=== PATIENT | female | born 1960 | race Hispanic/Latino ===

== ENCOUNTER 2017-05-16 00:45 | Emergency (ER) | payer BC ==
[~2017-05-16] VITALS: Ht 144.8 cm; Wt 67.6 kg
--- NOTE | 2017-05-16 03:10 | Diagnostic Imaging Report ---
EXAM: LUMBAR SPINE, AP, lateral, bilateral oblique and coned lateral view DATE: 05/16/2017 2:17 AM Time stamp on exam: [id number] hours INDICATION: Pain in lower back after lifting heavy item COMPARISON: None FINDINGS: BONES: Five lumbar-type vertebral bodies. Grade 1 anterolisthesis of L5 with respect to S1. No acute displaced fractures. No lytic or blastic lesions. DISCS: The disc-spaces are well-maintained. JOINTS: Facet arthropathy bilaterally at L5/S1. Suspected bilateral pars defects. SOFT TISSUES: Unremarkable IMPRESSION: Grade 1 anterolisthesis of L5 with respect to S1 secondary to facet arthropathy and suspected bilateral pars defects. Signed by: Dr. Marcia Candelaria M.D. on 05/16/2017 3:07 AM
[2017-05-16 04:10] VITALS: BP 146/63
== END 2017-05-16 04:15 | disposition home or self-care (01) ==
LOC: ER 00:45
DX: M54.5 Low back pain (principal); S39.012A Strain of muscle, fascia and tendon of lower back, initial encounter; Y93.89 Activity, other specified; Y92.008 Other place in unspecified non-institutional (private) residence as the place of occurrence of the external cause; I10 Essential (primary) hypertension
CPT/HCPCS: 72110; 99283

== ENCOUNTER 2018-01-21 14:50 | Emergency (ER) | payer BC ==
[~2018-01-21] VITALS: Ht 144.8 cm; Wt 67.6 kg
[2018-01-21] MEDS ORDERED: SODIUM CHLORIDE 0.9% 1000ML 1,000 ML IV STA (15:24)
[2018-01-21] MEDS ORDERED: MECLIZINE HCL 12.5 MG TAB PO ONE (15:30)
[2018-01-21 16:06] LABS: BASOPHILS % 0.3 % (0.0-1.0); EOSINOPHILS # (AUTO) 0.1 (0.0-0.4); EOSINOPHILS % 0.7 % (0.0-6.0); HEMATOCRIT 41.7 % (34.2-44.1); HEMOGLOBIN 13.8 g/dL (12.0-16.0); LYMPHOCYTES % 18.7 % (18.0-39.1); MEAN CORPUSCULAR HEMOGLOBIN 28.8 pg (28-32); MEAN CORPUSCULAR HGB CONC 33.1 g/dL (31-35); MEAN CORPUSCULAR VOLUME 87.1 fL (81-99); MONOCYTES # (AUTO) 0.6 (0.2-0.8); MONOCYTES % 5.6 % (4.4-11.3); NEUTROPHILS # (AUTO) 7.8 (2.1-6.9); NEUTROPHILS % 74.3 % (38.7-80.0); PLATELET COUNT 284 x10e3/uL (140-360); RED BLOOD COUNT 4.79 x10e6/uL (3.6-5.1); RED CELL DISTRIBUTION WIDTH 13.2 % (11.7-14.4)
[2018-01-21 16:27] LABS: ALANINE AMINOTRANSFERASE 14 IU/L (0-55); ALBUMIN 4.1 g/dL (3.5-5.0); ALBUMIN/GLOBULIN RATIO 1.1 (0.8-2.0); ALKALINE PHOSPHATASE 110 IU/L (40-150); ANION GAP 16.5 mmol/L (8-16); BILIRUBIN,URINE NEGATIVE (NEGATIVE); BLOOD UREA NITROGEN 15 mg/dL (7-26); BUN/CREATININE RATIO 23 (6-25); CALCIUM 10.3 mg/dL (8.4-10.2); CARBON DIOXIDE 25 mmol/L (22-29); CHLORIDE 102 mmol/L (98-107); CLARITY,URINE SL CLOUDY (CLEAR); COLOR,URINE YELLOW (YELLOW); CREATINE KINASE 46 IU/L (29-168); CREATININE, SERUM 0.66 mg/dL (0.57-1.11); EST GLOMERULAR FILTRATION RATE > 60 ML/MIN (60-); GLUCOSE 101 mg/dL (74-118); KETONES,URINE NEGATIVE (NEGATIVE); LEUKOCYTE ESTERASE ,URINE NEGATIVE (NEGATIVE); LIPASE 17 U/L (8-78); NITRITE,URINE NEGATIVE (NEGATIVE); POTASSIUM 3.5 mmol/L (3.5-5.1); PROTEIN,URINE DIPSTICK 1+ (NEGATIVE); SODIUM 140 mmol/L (136-145); URINE UROBILINOGEN 0.2 mg/dL (0.2 - 1)
[2018-01-21 16:45] LABS: BACTERIA,URINE MODERATE /HPF; EPITHELIAL CELLS,URINE FEW /LPF; WBC,URINE (MAN) 0-5 /HPF (0-5)
--- NOTE | 2018-01-21 17:08 | Diagnostic Imaging Report ---
Examination: Single AP view of the chest. COMPARISON: None. INDICATION: Shortness of breath DISCUSSION: Lines/tubes: None. Lungs: The lungs are well inflated and clear. No pneumonia or pulmonary edema. Pleura: No pleural effusion or pneumothorax. Heart and mediastinum: The heart and the mediastinum are unremarkable. Bones and soft tissues: No acute bony abnormalities. IMPRESSION: 1. No acute cardiopulmonary abnormalities. Signed by: Dr. Jeramie García M.D. on 01/21/2018 5:05 PM
[2018-01-21] MEDS ORDERED: SODIUM CHLORIDE 0.9% 50ML 50 ML ONE (18:32)
[2018-01-21] MEDS ORDERED: IOPAMIDOL 370 MG/ML 200 ML INFUS..BTL INJ ONE (18:32)
--- NOTE | 2018-01-21 18:34 | Diagnostic Imaging Report ---
History: Low back pain Comparison studies: None Technique: Axial images were obtained from T11 through the sacrum. Coronal and sagittal images reconstructed from the axial data. Intravenous contrast: None Dose modulation, iterative reconstruction, and/or weight based adjustment of the mA/kV was utilized to reduce the radiation dose to as low as reasonably achievable. Findings: Number of non-rib bearing vertebral bodies: 5 Alignment: Grade 1 anterolisthesis of L5 over S1 with bilateral spondylolysis. No scoliosis. Soft tissues: No paraspinal abnormalities. Atherosclerotic calcifications of the abdominal aorta Paraspinal muscles: Unremarkable. Vertebrae: No acute fractures, infection or neoplasm. Central L4 vertebral body loss of height with superior endplate Schmorl mild Degenerative changes: L1-L2: No abnormalities. L2-L3: No abnormalities. L3-L4: Mild disc degeneration with decreased intervertebral space and L4 superior endplate Schmorl node. Diffuse bulge and mild facet hypertrophy results in mild canal stenosis and mild bilateral foraminal narrowing L4-L5: Mild disc degeneration through 2 space. His simple and mild facet hypertrophy results in mild canal L5-S1: Is degeneration with decreased intervertebral space. Adenopathy. The result in canal stenosis and severe bilateral foraminal narrowing Sacroiliac joints: Mild degenerative changes with sclerotic changes. Contrast is seen in the collecting systems. IMPRESSION: 1. No acute abnormality. 2. Severe bilateral foraminal narrowing at L5-S1 secondary to grade 1 retrolistheses. Bilateral L5 pars interarticulares defect. 3. Other mild changes as described above Signed by: DR Brett Rahman M.D. on 01/21/2018 6:30 PM
--- NOTE | 2018-01-21 18:39 | Diagnostic Imaging Report ---
History:Dizziness, lower back pain, Comparison studies:None Technique: Axial images were obtained from the skull base to the vertex. Coronal and sagittal images reconstructed from the axial data. Intravenous contrast: 100 cc of Omnipaque 300. Dose modulation, iterative reconstruction, and/or weight based adjustment of the mA/kV was utilized to reduce the radiation dose to as low as reasonably achievable. Findings: Right internal carotid artery: Patent. No abnormalities. Left internal carotid artery: Patent. No abnormalities. Right vertebral artery: Patent. No abnormalities. Left vertebral artery: Patent. No abnormalities. Basilar artery: Patent. No abnormalities. Posterior cerebral arteries: Patent. No abnormalities. Anatomical variants: Acom: Patent . Pcoms: Not well visualized. Vertebral arteries: Codominant . IMPRESSION: 1. No intracranial vascular abnormality. 2. No intracranial abnormality Signed by: DR Brett Rahman M.D. on 01/21/2018 6:36 PM
[2018-01-21] MEDS ORDERED: MECLIZINE HCL25 M1 PO (19:54)
[2018-01-21 19:55] VITALS: BP 133/82
== END 2018-01-21 20:07 | disposition home or self-care (01) ==
LOC: ER 14:50
DX: R42 Dizziness and giddiness (principal)
CPT/HCPCS: 36415; 70496; 71045; 72131; 80053; 81001; 82550; 82553; 83605; 83690; 84484; 85025; 93005; 99284; J7030; Q9967

== ENCOUNTER → 2019-05-30 | Day surgery (SDC) | payer OTHER ==
[2019-05-24 11:59] LABS: BASOPHILS % 0.3 % (0.0-1.0); EOSINOPHILS # (AUTO) 0.2 (0.0-0.4); EOSINOPHILS % 2.3 % (0.0-6.0); HEMATOCRIT 38.6 % (34.2-44.1); HEMOGLOBIN 12.7 g/dL (12.0-16.0); LYMPHOCYTES # (AUTO) 1.6 (1.0-3.2); LYMPHOCYTES % 23.9 % (18.0-39.1); MEAN CORPUSCULAR HEMOGLOBIN 28.3 pg (28-32); MEAN CORPUSCULAR HGB CONC 32.9 g/dL (31-35); MONOCYTES # (AUTO) 0.5 (0.2-0.8); MONOCYTES % 7.4 % (4.4-11.3); NEUTROPHILS # (AUTO) 4.3 (2.1-6.9); NEUTROPHILS % 65.9 % (38.7-80.0); PLATELET COUNT 219 x10e3/uL (140-360); RED BLOOD COUNT 4.49 x10e6/uL (3.6-5.1); RED CELL DISTRIBUTION WIDTH 13.6 % (11.7-14.4)
--- NOTE | 2019-05-24 12:15 | Diagnostic Imaging Report ---
EXAMINATION: CHEST 2 VIEWS INDICATION: Pre-admit. COMPARISON: Chest radiograph 01/21/2018. FINDINGS: TUBES and LINES: None. LUNGS: Lungs are moderately inflated. Minimal patchy left basilar opacity, likely atelectasis. There is no evidence of lobar pneumonia or pulmonary edema. PLEURA: No pleural effusion or pneumothorax. HEART AND MEDIASTINUM: The cardiomediastinal silhouette is unremarkable. BONES AND SOFT TISSUES: No acute osseous lesion. Soft tissues are unremarkable. UPPER ABDOMEN: No free air under the diaphragm. IMPRESSION: No acute thoracic abnormality. Signed by: Dr. Peter Jose MD on 05/24/2019 12:13 PM
[~2019-05-30] MED LIST: ALPRAZOLAM1 MG PO; ATORVASTATIN CA20 MG PO; BUPIVACAINE 0.25% 30ML SDV INJ ONE; BUPIVACAINE HCL 0.5% INJ 30 ML VIAL INJ ONE; BUPROPION XL150 MG PO; CEFAZOLIN SOD 1 GM/NS 50ML 100 ML IV ONE; EPHEDRINE SULFATE INJ 50 MG/ML VIAL ONE; FENTANYL CITRATE/PF 100MCG/2 ML INJ ONE; GLYCOPYRROLATE INJ 0.2 MG/ML VIAL ONE; LABETALOL HCL 0 ML ONE; LIDOCAINE 1% W/EPINEPHRINE 20 ML VIAL ONE; LIDOCAINE 2%/ EPINEPHRINE 20ML MDV ONE; LIDOCAINE HCL 2% LOCAL INJ 5 ML SDV VIAL INJ ONE; LISINOPRIL10 MG PO; MECLIZINE HCL25 M1 PO; MEPERIDINE HCL INJ 25 MG/ML VIAL ONE; METOCLOPRAMIDE HCL 10 MG/2ML VIAL ONE; MIDAZOLAM HCL 2 MG/2 ML VIAL ONE; ONDANSETRON HCL INJ 2MG/ML 2ML 2 MG/ML VIAL ONE; PLAVIX75 MG PO; PROPOFOL IV EMULSION 10 MG/ML 20 ML VIAL ONE; SEVOFLURANE INHAL SOLN 250 ML PEN BTL ONE
--- OUTSIDE RECORDS SUMMARY | 2019-05-30 08:27 | XMS REPORT ---
Author Author [facility] Address Unknown Phone Unavailable Care Team Providers Care Half Backer Name Role Phone Omer MARINO Unavailable Unavailable GREGORIO THAPA Unavailable Unavailable Ciarra COLORADO LAIBRYANT Unavailable Unavailable Payers Payer Name Policy Type Policy Number Effective Date Expiration Date Problems This patient has no known problems. Allergies, Adverse Reactions, Alerts Allergy Name Allergy Type Status Severity Reaction(s) Onset Date Inactive Date Treating Clinician Comments ibuprofen DA Active U 2019-04-03 00:00:00 naproxen DA Active U 2019-04-03 00:00:00 tramadol DA Active U 2019-04-03 00:00:00 STEROIDS DA Active AK 2019-04-03 00:00:00 ibuprofen DA Active AK 2018-09-24 00:00:00 methylprednisolone DA Active SV 2018-09-24 00:00:00 naproxen DA Active SV 2018-09-24 00:00:00 ibuprofen DA Active U 2018-04-04 00:00:00 naproxen DA Active U 2018-04-04 00:00:00 No Known Allergies DA Active U 2016-08-12 00:00:00 Medications This patient has no known medications. Results Test Description Test Time Test Comments Text Results Atomic Results Result Comments CHEST 2 VIEWS 2019-05-24 12:11:00 [place] [id number] Patient Name: ELDA PARKS MR #: [id number] : 1960 Age/Sex: 58/F Req #: [id number] Adm Physician: Ordered by: MESSI MARINO DO Report #: [id number] Location: OR Room/Bed: Procedure: [id number] DX/CHEST 2 VIEWS Exam Date: Exam Time: REPORT STATUS: Signed EXAMINATION: CHEST 2 VIEWS INDICATION: Pre-admit. COMPARISON: Chest radiograph 01/21/2018. FINDINGS: TUBES and LINES: None. LUNGS: Lungs are moderately inflated. Minimal patchy left basilar opacity, likely atelectasis. There is no evidence of lobar pneumonia or pulmonary edema. PLEURA: No pleural effusion or pneumothorax. HEART AND MEDIASTINUM: The cardiomediastinal silhouette is unremarkable. BONES AND SOFT TI SSUES: No acute osseous lesion. Soft tissues are unremarkable. UPPER ABDOMEN: No free air under the diaphragm. IMPRESSION: No acute thoracic abnormality. Signed by: Dr. Janet Cruz MD on 05/24/2019 12:13 PM Dictated By: JANET CRUZ MD 1213 Transcribed By: CAMACHO on 05/24/19 1213 COPY TO: MESSI MARINO DO KNEE LEFT THREE VIEWS 2019-04-18 17:28:00 [place] [address] Patient Name: ELDA PARKS MR #: [id number] : 1960 Age/Sex: 58/F Req #: [id number] Adm Physician: Ordered by: GREGORIO THAPA DO Report #: [id number] Location: ER Room/Bed: Procedure: [id number] DX/KNEE LEFT THREE VIEWS Exam Date: 04/18/19 Exam Time: 1603 REPORT STATUS: Signed EXAMINATION: KNEE LEFT THREE VIEWS JUAN CATION: Knee pain COMPARISON: None FINDINGS: No acute fracture or dislocation. Alignment is anatomic. No substantial joint effusion. Minimal degenerative changes. IMPRESSION: No acute osseous injury. Signed by: Mary Belle MD on 04/18/2019 5:28 PM Dictated By: MARY BELLE MD 27 Transcribed By: CAMACHO on 04/18/191727 COPY TO: GREGORIO THAPA DO - CT L-SPINE W/O CONTRAST 2019-04-03 17:13:00 Name: ELDA BURGOS [facility] : 1960 Age/S: 58 / F [address] [facility] Unit #: [id number] Loc: [place] [address] Phys: Maggi Cruz MD Acct: [id number] Dis Date: Status: REG ER PHONE #: [phone] Exam Date: 04/03/2019 1702 FAX #: [phone] Reason: left hip pain and back pain EXAMS: CPT CODE: [id number] CT L-SPINE W/O CONTRAST [id number] REASON FOR EXAM: left hip pain and back pain EXAM ORDER DATE: 04/03/2019 4:13 PM Ordering: Maggi Cruz MD Attending:Maggi Cruz MD Location: PROCEDURE: - CT L-SPINE W/O CONTRAST FINDINGS: CT images of the were obtained without IV contrast at 2.5mm. Reconstructed coronal and sagittal images were also provided. Dose modulation, iterative reconstruction, and/or weight based adjustment of the MA/KV was utilized to reduce the radiation dose to as low as reasonably achievable. The osseous structures are intact. Minimal depression of the superior endplate of L4. The central canal is patent. Minimal anterior translation of L5-S1. Bilateral pars interarticularis defect noted at L5-S1. IMPRESSION: Degenerative changes and disc disease at L3-4. Grade 1 spondylolisthesis of L5-S1. No acute findings at 1713 Reported and signed by: Wolf Jordan M.D. CC: Cullen Duffy; Maggi Cruz MD Technologist:Maria Elena Garcia RT(R)(CT) CTDI: DLP: Trnscb Date/Time: 04/03/2019 (171) [email or web address] Orig Print D/T: S: 04/03/2019 (6246) PAGE 1 Signed Report BASIC METABOLIC PANEL 2019-04-03 17:12:00 SODIUM (test code=NA) 144 mmol/L 136-145 POTASSIUM (test code=K) 4.0 mmol/L 3.5-5.1 CHLORIDE (test code=CL) 110.0 mmol/L 98-107 CARBON DIOXIDE (test code=CO2) 28.0 mmol/L 21-32 ANION GAP (test code=GAP) 10.0 10-20 GLUCOSE (test code=GLU) 90 mg/dL 74-106 BLOOD UREA NITROGEN (test code=BUN) 17 mg/dL 7-18 GLOMERULAR FILTRATION RATE (test code=GFR) > 60 mL/min >=60 Estimated GFR by using Modified MDRD formula.Chronic kidney disease is defined as either kidney damageor GFR <60 mL/min/1.73 m2 for >3 months. CREATININE (test code=CREAT) 0.60 mg/dL 0.55-1.02 Note change in reference range due to change in reagent. BUN/CREATININE RATIO (test code=BUN/CREA) 28.3 10-20 CALCIUM (test code=CA) 9.9 mg/dL 8.5-10.1 [id number] 17:12:00* Test Item Value Reference Range Comments TROPONIN-I (test code=TROPI) <0.015 ng/mL 0-0.045 TROPONIN I [id number] 17:05:00* Test Item Value Reference Range Comments TROPONIN I RAPID (test code=TROPIRAP) 0.00 ng/mL <0.08 Please Note New Reference Range 0.00-0.079 ng/mL - Negative>or=0.08 ng/mL - Positive The use of serial sampling and testing protocol is arecommended practice.An elevated troponin level alone is often not sufficient fordiagnosis of myocardial infarction. Troponin results obtained by different assays may vary.Evaluation of the extent of myocardial damage based onincrease of troponin would be valid only if similarmethodology is used. BASIC METABOLIC [id number] 17:04:00* Test Item Value Reference Range Comments SODIUM (test code=NA) 144 mmol/L 136-145 POTASSIUM (test code=K) 4.0 mmol/L 3.5-5.1 CHLORIDE (test code=CL) 110.0 mmol/L 98-107 CARBON DIOXIDE (test code=CO2) mmol/L 21-32 ANION GAP (test code=GAP) 10-20 GLUCOSE (test code=GLU) mg/dL 74-106 BLOOD UREA NITROGEN (test code=BUN) mg/dL 7-18 GLOMERULAR FILTRATION RATE (test code=GFR) mL/min >=60 CREATININE (test code=CREAT) mg/dL 0.55-1.02 BUN/CREATININE RATIO (test code=BUN/CREA) 10-20 CALCIUM (test code=CA) mg/dL 8.5-10.1 [id number] 17:04:00* Test Item Value Reference Range Comments TROPONIN-I (test code=TROPI) ng/mL 0-0.045 - XR HIP W/PEL UNI 2+V [id number] 16:54:00 FAX: Cullen Carmona DO [phone] [place]: [address]: [facility] FAX: Maggi Cruz MD Name: ELDA BURGOS [facility] : 1960 Age/S: 58/F [address] Unit #: [id number] Loc: [place] [address] Phys: Maggi Cruz MD Acct: [id number] Dis Date: Status: REG ER PHONE #: [phone] Exam Date: 04/03/2019 1632 FAX #: [phone] Reason: left hip pain and back pain EXAMS: CPT CODE: [id number] XR HIP W/PEL UNI 2+[place] [id number] REASON FOR EXAM: left hip pain and back pain EXAM ORDER DATE: 04/03/2019 4:13 PM Ordering: Maggi Cruz MD Attending:Maggi Cruz MD Location: PROCEDURE: - XR HIP W/PEL UNI 2+V LT FINDINGS: 3 views of the left hip with frontal view of the pelvis were obtained. The osseous s tructures are unremarkable in size and shape. The joint spaces are mainta ined. No evidence of fracture. There is normal alignment of the left hi p joint IMPRESSION: Unremarkable left hip Thomas ayala Signed by Issa Jordan on 04/03/2019 at 1654 Isabelle maurizio and signed by: Wolf Jordan M.D. CC: Cullen Duffy; Maggi Ingram MD Technologist: Jez Rodriguez RT(R) Trnscrd Date/Time/By: 04/03/2019 (6482) : By: NeymarVTL Orig Print D/T: S: 04/03/2019 (6486) PAGE 1 Signed Report CBC W/O [id number] 16:53:00* Test Item Value Reference Range Comments WHITE BLOOD CELL (test code=WBC) 9.0 K/mm3 4.5-12.5 RED BLOOD CELL (test code=RBC) 4.74 mill/mm3 3.7-5.2 HEMOGLOBIN (test code=HGB) 13.5 gram/dL 11.5-15.5 HEMATOCRIT (test code=HCT) 41.5 % 36.0-46.0 MEAN CELL VOLUME (test code=MCV) 87.6 fL 80-98 MEAN CELL HGB (test code=MCH) 28.5 picogram 27.0-33.0 MEAN CELL HGB CONCETRATION (test code=MCHC) 32.5 gram/dL 33.0-36.0 RED CELL DISTRIBUTION WIDTH (test code=RDW) 13.7 % 11.6-16.2 PLATELET COUNT (test code=PLT) 252 K/mm3 150-450 MEAN PLATELET VOLUME (test code=MPV) 12.0 fL 6.7-11.0 CBC W/O [id number] 16:42:00* Test Item Value Reference Range Comments WHITE BLOOD CELL (test code=WBC) K/mm3 4.5-12.5 RED BLOOD CELL (test code=RBC) mill/mm3 3.7-5.2 HEMOGLOBIN (test code=HGB) 13.5 gram/dL 11.5-15.5 HEMATOCRIT (test code=HCT) 41.5 % 36.0-46.0 MEAN CELL VOLUME (test code=MCV) fL 80-98 MEAN CELL HGB (test code=MCH) picogram 27.0-33.0 MEAN CELL HGB CONCETRATION (test code=MCHC) gram/dL 33.0-36.0 RED CELL DISTRIBUTION WIDTH (test code=RDW) % 11.6-16.2 PLATELET COUNT (test code=PLT) K/mm3 150-450 MEAN PLATELET VOLUME (test code=MPV) fL 6.7-11.0 - XR CHEST 1 [id number] 16:08:00 FAX: Cullen Carmona [phone] [place]: [facility]: [facility] FAX: Piero Marshall NP [phone] Name: ELDA BURGOS [facility] : 1960 Age/S: 58/F [address] [facility] Unit #: [id number] Loc: [place] [address] Phys: Piero Marshall NP Acct: [id number] Dis Date: Status: REG ER PHONE #: [phone] Exam Date: 04/03/2019 1559 FAX #: [phone] Reason: CHEST PAIN EXAMS: CPT CODE: [id number] XR CHEST 1 V [id number] REASON FOR EXAM: CHEST PAIN EXAM ORDER DATE: 04/03/2019 3:44 PM Ordering: Piero Marshall NP Attending:Maggi Cruz MD Location: PROCEDURE: - XR CHEST 1 V COMPARISON: 12/07/2018 FINDINGS: Portable AP frontal view of the chest obtained at 3:59 PM shows clear lungs without evidence of consolidation. There is no evidence of effusion. The heart size is within normal limits. Pulmonary vasculatures are unremarkable. IMPRESSION: No active disease. at 1601 Reported and signed by: Wolf Jordan M.D. CC: Cullen Duffy; Piero Marshall NP Technologist: Mirna Sierra RT(R) Trnscrd Date/Time/By: 04/03/2019 (8361) : By: Deandra.VTL Orig Print D/T: S: 04/03/2019 (2266) PAGE 1 Signed Report BASIC METABOLIC [id number] 16:14:00* Test Item Value Reference Range Comments SODIUM (test code=NA) 141 mmol/L 136-145 POTASSIUM (test code=K) 4.0 mmol/L 3.5-5.1 CHLORIDE (test code=CL) 111.0 mmol/L 98-107 CARBON DIOXIDE (test code=CO2) 24.0 mmol/L 21-32 ANION GAP (test code=GAP) 10.0 10-20 GLUCOSE (test code=GLU) 111 mg/dL 74-106 BLOOD UREA NITROGEN (test code=BUN) 11 mg/dL 7-18 GLOMERULAR FILTRATION RATE (test code=GFR) > 60 mL/min >=60 Estimated GFR by using Modified MDRD formula.Chronic kidney disease is defined as either kidney damageor GFR <60 mL/min/1.73 m2 for >3 months. CREATININE (test code=CREAT) 0.60 mg/dL 0.55-1.02 Note change in reference range due to change in reagent. BUN/CREATININE RATIO (test code=BUN/CREA) 19.2 10-20 CALCIUM (test code=CA) 9.8 mg/dL 8.5-10.1 HEPATIC FUNCTION [id number] 16:14:00* Test Item Value Reference Range Comments TOTAL PROTEIN (test code=PROT) 7.6 gram/dL 6.4-8.2 ALBUMIN (test code=ALB) 4.0 g/dL 3.4-5.0 GLOBULIN (test code=GLOB) 3.6 gram/dL 2.7-4.2 ALBUMIN/GLOBULIN RATIO (test code=A/G) 1.1 0.75-1.50 BILIRUBIN TOTAL (test code=BILT) 0.50 mg/dL 0.0-1.0 BILIRUBIN DIRECT (test code=BILD) 0.14 mg/dL 0.0-0.20 SGOT/AST (test code=AST) 11 IUnit/L 15-37 SGPT/ALT (test code=ALT) 27 IUnit/L 12-78 ALKALINE PHOSPHATASE TOTAL (test code=ALKP) 92 IUnit/L 45-117 Note change in reference range due to change in reagent. [id number] 16:14:00* Test Item Value Reference Range Comments LIPASE (test code=LIP) 77 U/L 73.0-393.0 [id number] 16:14:00* Test Item Value Reference Range Comments TROPONIN-I (test code=TROPI) <0.015 ng/mL 0-0.045 TROPONIN I [id number] 16:08:00* Test Item Value Reference Range Comments TROPONIN I RAPID (test code=TROPIRAP) 0.01 ng/mL <0.08 Please Note New Reference Range 0.00-0.079 ng/mL - Negative>or=0.08 ng/mL - Positive The use of serial sampling and testing protocol is arecommended practice.An elevated troponin level alone is often not sufficient fordiagnosis of myocardial infarction. Troponin results obtained by different assays may vary.Evaluation of the extent of myocardial damage based onincrease of troponin would be valid only if similarmethodology is used. BASIC METABOLIC [id number] 16:05:00* Test Item Value Reference Range Comments SODIUM (test code=NA) 141 mmol/L 136-145 POTASSIUM (test code=K) 4.0 mmol/L 3.5-5.1 CHLORIDE (test code=CL) 111.0 mmol/L 98-107 CARBON DIOXIDE (test code=CO2) mmol/L 21-32 ANION GAP (test code=GAP) 10-20 GLUCOSE (test code=GLU) mg/dL 74-106 BLOOD UREA NITROGEN (test code=BUN) mg/dL 7-18 GLOMERULAR FILTRATION RATE (test code=GFR) mL/min >=60 CREATININE (test code=CREAT) mg/dL 0.55-1.02 BUN/CREATININE RATIO (test code=BUN/CREA) 10-20 CALCIUM (test code=CA) mg/dL 8.5-10.1 HEPATIC FUNCTION [id number] 16:05:00* Test Item Value Reference Range Comments TOTAL PROTEIN (test code=PROT) gram/dL 6.4-8.2 ALBUMIN (test code=ALB) g/dL 3.4-5.0 GLOBULIN (test code=GLOB) gram/dL 2.7-4.2 ALBUMIN/GLOBULIN RATIO (test code=A/G) 0.75-1.50 BILIRUBIN TOTAL (test code=BILT) mg/dL 0.0-1.0 BILIRUBIN DIRECT (test code=BILD) mg/dL 0.0-0.20 SGOT/AST (test code=AST) IUnit/L 15-37 SGPT/ALT (test code=ALT) IUnit/L 12-78 ALKALINE PHOSPHATASE TOTAL (test code=ALKP) IUnit/L 45-117 [id number] 16:05:00* Test Item Value Reference Range Comments LIPASE (test code=LIP) U/L 73.0-393.0 [id number] 16:05:00* Test Item Value Reference Range Comments TROPONIN-I (test code=TROPI) ng/mL 0-0.045 CBC W/O [id number] 15:27:00* Test Item Value Reference Range Comments WHITE BLOOD CELL (test code=WBC) 7.8 K/mm3 4.5-12.5 RED BLOOD CELL (test code=RBC) 4.88 mill/mm3 3.7-5.2 HEMOGLOBIN (test code=HGB) 14.1 gram/dL 11.5-15.5 HEMATOCRIT (test code=HCT) 41.8 % 36.0-46.0 MEAN CELL VOLUME (test code=MCV) 85.7 fL 80-98 MEAN CELL HGB (test code=MCH) 28.9 picogram 27.0-33.0 MEAN CELL HGB CONCETRATION (test code=MCHC) 33.7 gram/dL 33.0-36.0 RED CELL DISTRIBUTION WIDTH (test code=RDW) 13.7 % 11.6-16.2 PLATELET COUNT (test code=PLT) 213 K/mm3 150-450 MEAN PLATELET VOLUME (test code=MPV) 12.4 fL 6.7-11.0 CBC W/O [id number] 15:24:00* Test Item Value Reference Range Comments WHITE BLOOD CELL (test code=WBC) K/mm3 4.5-12.5 RED BLOOD CELL (test code=RBC) mill/mm3 3.7-5.2 HEMOGLOBIN (test code=HGB) 14.1 gram/dL 11.5-15.5 HEMATOCRIT (test code=HCT) 41.8 % 36.0-46.0 MEAN CELL VOLUME (test code=MCV) fL 80-98 MEAN CELL HGB (test code=MCH) picogram 27.0-33.0 MEAN CELL HGB CONCETRATION (test code=MCHC) gram/dL 33.0-36.0 RED CELL DISTRIBUTION WIDTH (test code=RDW) % 11.6-16.2 PLATELET COUNT (test code=PLT) K/mm3 150-450 MEAN PLATELET VOLUME (test code=MPV) fL 6.7-11.0 - XR CHEST 1 [id number] 15:01:00 FAX: Alek Chang [phone] [place]: B St: PRE FAX: Cullen Carmona DO [phone] Name: ELDA PARKS [facility] : 1960 Age/S: 58/F [place] Unit #: [id number] Loc: [place] [address] Phys: Alek Logan MD Acct: [id number] Dis Date: Status: PRE ER PHONE #: [phone] Exam Date: 03/19/2019 1455 FAX #: [phone] Reason: CHEST PAIN EXAMS: CPT CODE: [id number] XR CHEST 1 V [id number] REASON FOR EXAM: CHEST PAIN Exam Order Date: 03/19/2019 2:41 PM Ordering M.D.: Alek Logan MD PROCEDURE: - XR CHEST 1 V COMPARISON: CT chest September 24, 2018 FINDINGS: The lungs are clear. There is no pleural effusion or pneumothorax. Pulmonary vascularity is within normal limits. Cardiomediastinal silhouette is normal in size for technique. The mediastinal contours are within normal limits. Musculoskeletal st ructures are within normal limits. The visualized upper abdomen is within normal limits. IMPRESSION: No acute card iopulmonary process. Location: [facility] at 1501 Reported and signed by: Virgil Knight MD CC: Alek Logan MD; Jose L Duffy Technologist: AXEL PHILLIPS Trnscrd Date/Time/By: 03/19/2019 (9368) : By: [email or web address] Orig Print D/T: S: 03/19/2019 (5961) PAGE 1 Signed Report [id number] 15:44:00* Test Item Value Reference Range Comments TROPONIN-I (test code=TROPI) <0.015 ng/mL 0-0.045 COMMENTS TO TREASURY CONSULTANT: COLLECT 3 HOURS AFTER PREVIOUS [id number] 15:41:00* Test Item Value Reference Range Comments TROPONIN-I (test code=TROPI) <0.015 ng/mL 0-0.045 COMMENTS TO TREASURY CONSULTANT: COLLECT 3 HOURS AFTER PREVIOUS SAMPLEBASIC METABOLIC [id number] 05:21:00* Test Item Value Reference Range Comments SODIUM (test code=NA) 142 mmol/L 136-145 POTASSIUM (test code=K) 3.4 mmol/L 3.5-5.1 CHLORIDE (test code=CL) 111.0 mmol/L 98-107 CARBON DIOXIDE (test code=CO2) 26.0 mmol/L 21-32 ANION GAP (test code=GAP) 8.4 10-20 GLUCOSE (test code=GLU) 88 mg/dL 74-106 BLOOD UREA NITROGEN (test code=BUN) 17 mg/dL 7-18 GLOMERULAR FILTRATION RATE (test code=GFR) > 60 mL/min >=60 Estimated GFR by using Modified MDRD formula.Chronic kidney disease is defined as either kidney damageor GFR <60 mL/min/1.73 m2 for >3 months. CREATININE (test code=CREAT) 0.60 mg/dL 0.55-1.02 Note change in reference range due to change in reagent. BUN/CREATININE RATIO (test code=BUN/CREA) 28.3 10-20 CALCIUM (test code=CA) 9.1 mg/dL 8.5-10.1 HCG SERUM [id number] 05:21:00* Test Item Value Reference Range Comments HCG SERUM QUAL (test code=HCGQL) NEGATIVE NEGATIVE This HCGQL test is NOT applicable for MALE patients.Check with nurse about probable order error.If Tumor Marker Test needed, nurse should order test "HCGTU"(Test #550.17015) [id number] 05:21:00* Test Item Value Reference Range Comments TROPONIN-I (test code=TROPI) <0.015 ng/mL 0-0.045 BASIC METABOLIC [id number] 05:20:00* Test Item Value Reference Range Comments SODIUM (test code=NA) mmol/L 136-145 POTASSIUM (test code=K) mmol/L 3.5-5.1 CHLORIDE (test code=CL) mmol/L 98-107 CARBON DIOXIDE (test code=CO2) mmol/L 21-32 ANION GAP (test code=GAP) 10-20 GLUCOSE (test code=GLU) mg/dL 74-106 BLOOD UREA NITROGEN (test code=BUN) mg/dL 7-18 GLOMERULAR FILTRATION RATE (test code=GFR) mL/min >=60 CREATININE (test code=CREAT) mg/dL 0.55-1.02 BUN/CREATININE RATIO (test code=BUN/CREA) 10-20 CALCIUM (test code=CA) mg/dL 8.5-10.1 HCG SERUM [id number] 05:20:00* Test Item Value Reference Range Comments HCG SERUM QUAL (test code=HCGQL) NEGATIVE NEGATIVE This HCGQL test is NOT applicable for MALE patients.Check with nurse about probable order error.If Tumor Marker Test needed, nurse should order test "HCGTU"(Test #550.18879) [id number] 05:20:00* Test Item Value Reference Range Comments TROPONIN-I (test code=TROPI) ng/mL 0-0.045 CBC W/O [id number] 05:01:00* Test Item Value Reference Range Comments WHITE BLOOD CELL (test code=WBC) 6.6 K/mm3 4.5-12.5 RED BLOOD CELL (test code=RBC) 4.34 mill/mm3 3.7-5.2 HEMOGLOBIN (test code=HGB) 12.4 gram/dL 11.5-15.5 HEMATOCRIT (test code=HCT) 38.7 % 36.0-46.0 MEAN CELL VOLUME (test code=MCV) 89.2 fL 80-98 MEAN CELL HGB (test code=MCH) 28.6 picogram 27.0-33.0 MEAN CELL HGB CONCETRATION (test code=MCHC) 32.0 gram/dL 33.0-36.0 RED CELL DISTRIBUTION WIDTH (test code=RDW) 13.9 % 11.6-16.2 PLATELET COUNT (test code=PLT) 206 K/mm3 150-450 MEAN PLATELET VOLUME (test code=MPV) 12.5 fL 6.7-11.0 - US ABDOMEN [id number] 03:55:00 Name: ELDA BURGOS [facility] : 1960 Age/S: 58 / F [place] Unit #: [id number] Loc: [place] [address] Phys: Alek Logan MD Acct: [id number] Dis Date: Status: REG ER PHONE #: [phone] Exam Date: 12/07/2018332 FAX #: [phone] Reason: ruq pain EXAMS: CPT CODE: [id number] US ABDOMEN LTD 18337 Location: T 18 RUQ sonogram, 12/07/18 COMPARISON EXAM: None of the abdomen CLINICAL HISTORY: Right upper quadrant pain in this patient presenting to the emergency room Do not see a definite gallstone. The gallbladder is somewhat contracted. This may be reflective of chronic cholecystitis. Probable small polyp measuring just 3 to 4 mm in size is seen within the gallbladder dependent along the anterior wall without shadowing. No biliary distention is seen. The CBD measures 2 mm. The right kidney is unremarkable. Liver is normal in size and echogenicity without abnormal mass. The retroperitoneal structures are grossly unremarkable. There is presence of a positive Preston's sign as noted sonographically. Consideration of general surgical consultation is therefore advised. The g allbladder wall is mildly prominent although the gallbladder is contracted and therefore this is difficult to assess.. IMPRESSION: Contracted gallbladder without definite galls tones but with positive Preston's sonographic sign and with probable smal l gallbladder polyp. No biliary distention of significance at 0355 Re ported and signed by: Emilee Brink M.D. CC: Alek Logan MD; Cullen Duffy Technologist: YUDITH ALEXIS RDMS Trnazb Date/Time: 12/07/2018 (0355) [email or web address] Orig Print D/T: S: 12/07/2018 (0358) Probe: PAGE 1 Signed Report - XR CHEST 1 [id number] 03:12:00 FAX: Alek Chang [phone] [place]: B St: REG FAX: Cullen Carmona DO [phone] Name: ELDA BURGOS [facility] : 1960 Age/S: 58/F [address] [facility] Unit #: [id number] Loc: [place] [address] Phys: Alek Logan MD Acct: [id number] Dis Date: Status: REG ER PHONE #: [phone] Exam Date: 12/07/2018 0254 FAX #: [phone] Reason: CHEST PAIN EXAMS: CPT CODE: [id number] XR CHEST 1 V 77048 Location: T 18 CHEST X-RAY: AP frontal projection, one view, 12/07/18 CLINICAL HISTORY: Chest pain, ER presentation COMPARISON EXAMS: Chest CT exam of 04/04/19 and chest x-ray exam of 04/04/19 FINDINGS: Heart, lungs, and mediastinal structures are within normal limits. No evolving pneumonia or CHF. No evolving pleural-based finding. IMPRESSION: No acute finding at 0312 Reported and signed by: Emilee Pate M.D. CC: Alek Logan MD; Cullen Duffy Technologist: RT NATE Trnscrd Date/Time/By: 12/07/2018 (311) : By: [email or web address] Orig Print D/T: S: 12/07/2018 (0315) PAGE 1 Signed Report - XR HIP BI [id number] 16:20:00 FAX: Cullen Carmona DO [phone] [place]: [address]: REG Name: ELDA MORALES [facility] : [birth year] Age/S: 58/F [place] Unit #: [id number] Loc: [place], [place] [address] Phys: Cullen Duffy DO Acct: [id number] Dis Date: Status: REG CLI PHONE #: [phone] Exam Date: 11/03/2018 1537 FAX #: [phone] Reason: M25.552 EXAMS: CPT CODE: [id number] XR HIP BI W/PELVIS [id number] HISTORY: M25.552 EXAM: AP pelvis as well as AP and frog-leg views of the bilateral hips Comparison: CT of the abdomen and pelvis June 12, 2016 F INDINGS: No acute fracture of the bony pelvis. No d iastases of the SI joints or pubic symphysis. Hip joints are not dislocated. Proximal femurs are intact. Lower lumb ar spine is unremarkable. IMPRESSION: Negative radiographic exa mination of the bony pelvis. at 1620 Reported and signed by: Virgil unger MD CC: Cullen Duffy Technologist: RT Karuna(R) Trnscrd Date/Time/By: 11/03/2018 (2154) : By: [email or web address] Orig Print D/T: S: 11/03/2018 (5867) PAGE 1 Signed R e[place] [id number] 20:48:00* Test Item Value Reference Range Comments GLUBED (test code=GLUBED) 109 mg/dL 74-106 Performed by certified melter operator at [facility] [id number] 13:16:00* Test Item Value Reference Range Comments TROPONIN-I (test code=TROPI) <0.015 ng/mL 0-0.045 COMMENTS TO TREASURY CONSULTANT: COLLECT 3 HOURS AFTER PREVIOUS SAMPLELIPID PROFILE (CORONARY RISK)2018-09-24 11:00:00* Test Item Value Reference Range Comments TRIGLYCERIDES (test code=TRIG) 135 mg/dL 20-150 CHOLESTEROL (test code=CHOL) 161 mg/dL 0-200 CHOLESTEROL/HDL RATIO (test code=CHOLHDL) 2.0 RATIO 0-4.9 RISK ASSOCIATED WITH CHOL/HDL RATIOS: Risk Male Female1/2 AVERAGE 3.43 3.27AVERAGE 4.97 4.442X AVERAGE 9.55 7.053X AVERAGE 23.39 11.04 REFERENCE VALUE IS RELATED TO RISK LEVELS ASRECOMMENDED BY THE [facility]. HEART, LUNG, AND BLOOD INST. HDL CHOLESTEROL (test code=HDL) 57 mg/dL 40-60 LIPOPROTEIN LDL (test code=LDL) 91 mg/dL 100-129 Reference Interval: mg/dL mmol/L Optimal <100 <2.6Near/above optimal 100-129 2.6- 3.3Borderline High 130-159 3.4-4.1High 160-189 4.1-4.9Very High >=190 >=4.9=========This LDL result is a direct measurement.========= [id number] 11:00:00* Test Item Value Reference Range Comments TROPONIN-I (test code=TROPI) <0.015 ng/mL 0-0.045 COMMENTS TO TREASURY CONSULTANT: COLLECT 3 HOURS AFTER PREVIOUS SAMPLEDRUGS OF ABUSE SCREEN [id number] 08:42:00* Test Item Value Reference Range Comments UA PH DIPSTICK (test code=CIHVO) 6.0 5.0-8.0 URN COCAINE (test code=COCAURN) NEGATIVE <300 ng/mL URN CANNABINOIDS (test code=CANNABURN) NEGATIVE <50 ng/mL URN AMPHETAMINE (test code=AMPHETURN) NEGATIVE <1000 ng/mL URN BARBITURATE (test code=BARBITURN) NEGATIVE <200 ng/mL URN BENZODIAZEPINE (test code=BENZOURN) POSITIVE <200 ng/mL This test provides only a preliminary test result. A morespecific alternate chemical method must be used in order toobtain a confirmed analytical result. Gas chromatography/mass spectrometry (GC/MS) is thepreferred confirmatory method. Other chemical confirmationmethods are available. Clinical consideration and professional judgment should be applied to any drug of abusetest result, particularly when preliminary positive resultsare used.Unconfirmed screening results must not be used fornon-medical purposes (e.g., employment testing, legaltesting). URN OPIATES (test code=OPIATURN) NEGATIVE <300 ng/mL URN PHENCYCLIDINE (PCP) (test code=PHENCURN) NEGATIVE <25 ng/mL URN METHADONE (test code=METHAURN) NEGATIVE <300 ng/mL - CT ABD PELVIS W/[id number] 08:41:00 Name: ELDA PARKS [facility] : 1960 Age/S: 57 / F [address] [facility] Unit #: [id number] Loc: [place] [address] Phys: Marquis Rivas MD Acct: [id number] Dis Date: Status: ADM IN PHONE #: [phone] Exam Date: 09/24/2018 08 FAX #: [phone] Reason: chest pain rad back HTN EXAMS: CPT CODE: [id number] CT ABD PELVIS W/CONT 35500 HISTORY: Chest pain and back pain. COMPARISON: None available. CTA CHEST: 3-D images NOT available. 100 mL of Isovue- 370. Automated exposure control. Unremarkable pulmonary arteries. No aortic aneurysm either. Well-opacified SVC and the neck vasculature. Unremarkable thyroid glands. Esophageal wall is not thickened. No pathologic adenopathy. Cardiomegaly without pericardial effusion. Subcutaneous tissues and the musculature are normal in appearance. No lytic or blastic lesions are noted within skeleton. The lungs are clear of infiltrates, effusion or congestion. No bronchiectasis, honeycombing or fibrosis. No endobronchial lesions. Dependent changes. IMPRESSION: No acute intrathoracic pathology. No aortic aneurysm or dissection. CT ABDOMEN: The liver is enhancing homogeneously. No parenchymal mass. Gallbladder is without radiopaque stones. The liver measured 17 cm in length. Portal vein and hepatic artery are patent. Spleen is not enlarged. The stomach distended incompletely however it is normal in appearance. Pancreas is enhancing homogeneously. Adrenals are normal. Kidneys are free from hydroureteronephrosis. Homogeneous enhancement. Bilateral excretion. Subcentimeter low-attenuation lesion in the left lower pole is too small to characterize. No pathologic adenopathy. Well-opacified abdominal and pelvic vasculature with atherosclerotic change. No aortic aneurysm. No aortic dissection is noted. No bowel obstruction or colitis or diverticulitis or enteritis. CT PELVIS: PAGE 1 Signed Report (CONTINUED) Name: ELDA PARKS [facility] : 1960 Age/S: 57 / F [address] [facility] Unit #: [id number] Loc: [place] [address] Phys: Marquis Rivas MD Acct: [id number] Dis Date: Status: ADM IN PHONE #: [phone] Exam Date: 09/24/2018813 FAX #: [phone] Reason: chest pain rad back HTN EXAMS: CPT CODE: [id number] CT ABD PELVIS W/CONT 97610 <Continued> Appendix is normal. Pelvic bowel loops are unobstructed. Unremarkable urinary bladder. The uterus and ovaries unremarkable. No free fluid or free air or abscess. No pelvic pathologic adenopathy. Subcutaneous tissues and the musculature are normal in appearance. No lytic or blastic lesions are noted within the bony skeleton DJD. Bilateral spondylolysis at L5-S1 level with grade 1 anterolisthesis as well. Schmorl's node at L4 and T11 level. IMPRESSION: No aortic dissection or aneurysm. Atherosclerotic change. No acute intra-abdominal or intrapelvic pathology. at 0841 Reported and signed by: Javier Santiago M.D. CC: Marquis Rivas MD Technologist:Heidi Garcia,RT(R),CT CTDI: DLP: Trnscb Date/Time: 09/24/2018 (08) t.SDR.TH4 Orig Print D/T: S: 09/24/2018 (0844) PAGE 2 Signed Report - CT CHEST W/[id number] 08:41:00 Name: ELDA PARKS [facility] : 1960 Age/S: 57 / F [address] Unit #: [id number] Loc: [place] [address] Phys: Ryne Rivas MD Acct: [id number] Di s Date: Status: ADM IN PHONE #: Exam Date: 09/24/2018813 FAX #: [phone] Reason: chest pain rad back HTN EXAMS: CPT CODE: [id number] CT CHEST W/CO NTRAST 80586 HISTORY: Chest pain and b ack pain. COMPARISON: None available. CTA CHEST: 3-D images NOT available. 100 mL of Isovue-370. Automated exposure control. Unremarkable pulmonary arteries. No aortic aneurysm either. W ell-opacified SVC and the neck vasculature. Unremarkable thyroid g lands. Esophageal wall is not thickened. No pathologic adenopathy. Cardiom egaly without pericardial effusion. Subcutaneous tissues and the m usculature are normal in appearance. No lytic or blastic lesions are noted within skeleton. The lungs are clear of infiltrates, effusion or congesti on. No bronchiectasis, honeycombing or fibrosis. No endobronchial lesions. Dependent changes. IMPRESSION: No acute intra thoracic pathology. No aortic aneurysm or dissection. CT ABDOM EN: The liver is enhancing homogeneously. No parenchymal mass. Gallbladder is without radiopaque stones. The liver measured 17 cm in l ength. Portal vein and hepatic artery are patent. Sple en is not enlarged. The stomach distended incompletely however it is nor mal in appearance. Pancreas is enhancing homogeneously. Adrena ls are normal. Kidneys are free from hydroureteronephrosis. Ho mogeneous enhancement. Bilateral excretion. Subcentimeter low-attenuatio n lesion in the left lower pole is too small to characterize. No pathologic adenopathy. Well-opacified abdominal and pelvic va sculature with atherosclerotic change. No aortic aneurysm. No aortic dis section is noted. No bowel obstruction or colitis or diverticu litis or enteritis. CT PELVIS: PAGE 1 Signed Report (CONTINUED) Name: ELDA PARKS [facility] : 1960 Age/S: 57 / F [address] Unit #: [id number] Loc: [place] [address] Phys: Marquis Rivas MD Acct: [id number] Dis Date: Status: ADM IN PHONE #: [phone] Exam D ate: 09/24/2018813 FAX #: [phone] Reason: chest pain rad back HTN EXAMS: CPT CODE: [id number] CT CHEST W/CONTRAST 08969 <Continued> Appendix is normal. Pelvic bowel loops are unobstructed. Unremarkable urinary bladder. The uterus and ovaries unremarkable. No free fluid or free air or abscess. No pelvic pathologic adenopathy. Subcutaneous tissues and the musculature are normal in appearance. No lytic or blastic lesions are noted within the bony skeleton DJD. Bilateral spondylolysis at L5-S1 level with grade 1 anterolisthesis as well. Schmorl's node at L4 and T11 level. IMPRESSION: No aortic dissection or aneurysm. Atherosclerotic change. No acute intra-abdominal or intrapelvic pathology. at 0841 Reported and signed by: Javier Santiago M.D. CC: Marquis Rivas MD Technologist:Heidi Garcia,RT(R),CT CTDI: DLP: Trnscb Date/Time: 09/24/2018 (0841) t.SDR.TH4 Orig Print D/T: S: 09/24/2018 (0844) PAGE 2 Signed Report DRUGS OF ABUSE SCREEN [id number] 08:38:00* Test Item Value Reference Range Comments UA PH DIPSTICK (test code=CHIVO) 5.0-8.0 URN COCAINE (test code=COCAURN) NEGATIVE <300 ng/mL URN CANNABINOIDS (test code=CANNABURN) NEGATIVE <50 ng/mL URN AMPHETAMINE (test code=AMPHETURN) NEGATIVE <1000 ng/mL URN BARBITURATE (test code=BARBITURN) NEGATIVE <200 ng/mL URN BENZODIAZEPINE (test code=BENZOURN) POSITIVE <200 ng/mL This test provides only a preliminary test result. A morespecific alternate chemical method must be used in order toobtain a confirmed analytical result. Gas chromatography/mass spectrometry (GC/MS) is thepreferred confirmatory method. Other chemical confirmationmethods are available. Clinical consideration and professional judgment should be applied to any drug of abusetest result, particularly when preliminary positive resultsare used.Unconfirmed screening results must not be used fornon-medical purposes (e.g., employment testing, legaltesting). URN OPIATES (test code=OPIATURN) NEGATIVE <300 ng/mL URN PHENCYCLIDINE (PCP) (test code=PHENCURN) NEGATIVE <25 ng/mL URN METHADONE (test code=METHAURN) NEGATIVE <300 ng/mL URINALYSIS [id number] 08:12:00* Test Item Value Reference Range Comments UA COLOR (test code=COLU) COLORLESS YELLOW UA APPEARANCE (test code=APPU) CLEAR CLEAR UA GLUCOSE DIPSTICK (test code=DGLUU) NEGATIVE mg/dL NEGATIVE UA BILIRUBIN DIPSTICK (test code=BILU) NEGATIVE mg/dL NEGATIVE UA KETONE DIPSTICK (test code=KETU) NEGATIVE mg/dL NEGATIVE UA SPECIFIC GRAVITY (test code=SGU) 1.005 1.001-1.035 UA BLOOD DIPSTICK (test code=DEVAUGHN) 0.1 mg/dL (1+) mg/dL NEGATIVE UA PH DIPSTICK (test code=CHIVO) 6.0 5.0-8.0 UA PROTEIN DIPSTICK (test code=PROU) NEGATIVE mg/dL NEGATIVE UA UROBILINIOGEN DIPSTICK (test code=URO) Normal mg/dL NEGATIVE UA NITRITE DIPSTICK (test code=SIERRA) NEGATIVE NEGATIVE UA LEUKOCYTE ESTERASE W REFLEX (test code=LEUUR) NEGATIVE Rosemary/uL NEGATIVE UA WBC (test code=WBCU) 0-5 per HPF 0-5 UA RBC (test code=RBCU) 0-2 #/HPF 0-5 UA EPITHELIAL CELLS (test code=EPIU) FEW per HPF FEW UA BACTERIA (test code=BACU) NONE SEEN #/HPF NONE Urine Source? Clean CatchTROPONIN I [id number] 07:03:00* Test Item Value Reference Range Comments TROPONIN I RAPID (test code=TROPIRAP) 0.00 ng/mL <0.08 Please Note New Reference Range 0.00-0.079 ng/mL - Negative>or=0.08 ng/mL - Positive The use of serial sampling and testing protocol is arecommended practice.An elevated troponin level alone is often not sufficient fordiagnosis of myocardial infarction. Troponin results obtained by different assays may vary.Evaluation of the extent of myocardial damage based onincrease of troponin would be valid only if similarmethodology is used. BASIC METABOLIC [id number] 06:55:00* Test Item Value Reference Range Comments SODIUM (test code=NA) 142 mmol/L 136-145 POTASSIUM (test code=K) 3.7 mmol/L 3.5-5.1 CHLORIDE (test code=CL) 109.0 mmol/L 98-107 CARBON DIOXIDE (test code=CO2) 27.0 mmol/L 21-32 ANION GAP (test code=GAP) 9.7 10-20 GLUCOSE (test code=GLU) 96 mg/dL 74-106 BLOOD UREA NITROGEN (test code=BUN) 15 mg/dL 7-18 GLOMERULAR FILTRATION RATE (test code=GFR) > 60 mL/min >=60 Estimated GFR by using Modified MDRD formula.Chronic kidney disease is defined as either kidney damageor GFR <60 mL/min/1.73 m2 for >3 months. CREATININE (test code=CREAT) 0.60 mg/dL 0.55-1.02 Note change in reference range due to change in reagent. BUN/CREATININE RATIO (test code=BUN/CREA) 25.0 10-20 CALCIUM (test code=CA) 9.8 mg/dL 8.5-10.1 HEPATIC FUNCTION [id number] 06:55:00* Test Item Value Reference Range Comments TOTAL PROTEIN (test code=PROT) 7.8 gram/dL 6.4-8.2 ALBUMIN (test code=ALB) 4.1 g/dL 3.4-5.0 GLOBULIN (test code=GLOB) 3.7 gram/dL 2.7-4.2 ALBUMIN/GLOBULIN RATIO (test code=A/G) 1.1 0.75-1.50 BILIRUBIN TOTAL (test code=BILT) 0.30 mg/dL 0.0-1.0 BILIRUBIN DIRECT (test code=BILD) 0.09 mg/dL 0.0-0.20 SGOT/AST (test code=AST) 19 IUnit/L 15-37 SGPT/ALT (test code=ALT) 43 IUnit/L 12-78 ALKALINE PHOSPHATASE TOTAL (test code=ALKP) 107 IUnit/L 45-117 Note change in reference range due to change in reagent. [id number] 06:55:00* Test Item Value Reference Range Comments LIPASE (test code=LIP) 139 U/L 73.0-393.0 [id number] 06:55:00* Test Item Value Reference Range Comments TROPONIN-I (test code=TROPI) <0.015 ng/mL 0-0.045 - XR CHEST 1 [id number] 06:49:00 FAX: Pricilla Vang [phone] [place]: St: REG Name: ELDA PAUL [facility] : [birth year] Age/S: 57/F [address] [facility] Unit #: [id number] Loc: [place] [address] Phys: Pricilla Ling MD Acct: [id number] Dis Date: Status: REG ER PHONE #: [phone] Exam Date: 09/24/2018 06 FAX #: [phone] Reason: CHEST PAIN EXAMS: CPT CODE: [id number] XR CHEST 1 V 88148 EXAM: - XR CHEST 1 V Location code:C3 HISTORY: CHEST PAIN COMPARISON: N one available time of interpretation. FINDINGS: Sing le AP view of the chest is provided. Heart size and vascularity are within normal limits. The lungs are clear of focal consolidation. No effusion, pneumothorax, or acute osseous abnormality. IMPRE SSION: 1. No radiographic evidence of acute cardiopulmonary process. at 0649 Rep orted and signed by: Carmine Jay M.D. CC: Pricilla Ling MD Technologist: BROCK KUMAR JR Trnscrd Date/Time/By: 09/24/2018 (0649) : By: [email or web address] Orig Print D/T: S: 09/24/2018 (0652) PAGE 1 Signed Report BASIC METABOLIC [id number] 06:43:00* Test Item Value Reference Range Comments SODIUM (test code=NA) 142 mmol/L 136-145 POTASSIUM (test code=K) 3.7 mmol/L 3.5-5.1 CHLORIDE (test code=CL) 109.0 mmol/L 98-107 CARBON DIOXIDE (test code=CO2) mmol/L 21-32 ANION GAP (test code=GAP) 10-20 GLUCOSE (test code=GLU) mg/dL 74-106 BLOOD UREA NITROGEN (test code=BUN) mg/dL 7-18 GLOMERULAR FILTRATION RATE (test code=GFR) mL/min >=60 CREATININE (test code=CREAT) mg/dL 0.55-1.02 BUN/CREATININE RATIO (test code=BUN/CREA) 10-20 CALCIUM (test code=CA) mg/dL 8.5-10.1 HEPATIC FUNCTION [id number] 06:43:00* Test Item Value Reference Range Comments TOTAL PROTEIN (test code=PROT) gram/dL 6.4-8.2 ALBUMIN (test code=ALB) g/dL 3.4-5.0 GLOBULIN (test code=GLOB) gram/dL 2.7-4.2 ALBUMIN/GLOBULIN RATIO (test code=A/G) 0.75-1.50 BILIRUBIN TOTAL (test code=BILT) mg/dL 0.0-1.0 BILIRUBIN DIRECT (test code=BILD) mg/dL 0.0-0.20 SGOT/AST (test code=AST) IUnit/L 15-37 SGPT/ALT (test code=ALT) IUnit/L 12-78 ALKALINE PHOSPHATASE TOTAL (test code=ALKP) IUnit/L 45-117 [id number] 06:43:00* Test Item Value Reference Range Comments LIPASE (test code=LIP) U/L 73.0-393.0 [id number] 06:43:00* Test Item Value Reference Range Comments TROPONIN-I (test code=TROPI) ng/mL 0-0.045 CBC W/O [id number] 06:23:00* Test Item Value Reference Range Comments WHITE BLOOD CELL (test code=WBC) 6.8 K/mm3 4.5-12.5 RED BLOOD CELL (test code=RBC) 4.86 mill/mm3 3.7-5.2 HEMOGLOBIN (test code=HGB) 13.6 gram/dL 11.5-15.5 HEMATOCRIT (test code=HCT) 41.7 % 36.0-46.0 MEAN CELL VOLUME (test code=MCV) 85.8 fL 80-98 MEAN CELL HGB (test code=MCH) 28.0 picogram 27.0-33.0 MEAN CELL HGB CONCETRATION (test code=MCHC) 32.6 gram/dL 33.0-36.0 RED CELL DISTRIBUTION WIDTH (test code=RDW) 13.9 % 11.6-16.2 PLATELET COUNT (test code=PLT) 243 K/mm3 150-450 MEAN PLATELET VOLUME (test code=MPV) 11.2 fL 6.7-11.0 CBC W/O [id number] 06:12:00* Test Item Value Reference Range Comments WHITE BLOOD CELL (test code=WBC) K/mm3 4.5-12.5 RED BLOOD CELL (test code=RBC) mill/mm3 3.7-5.2 HEMOGLOBIN (test code=HGB) 13.6 gram/dL 11.5-15.5 HEMATOCRIT (test code=HCT) 41.7 % 36.0-46.0 MEAN CELL VOLUME (test code=MCV) fL 80-98 MEAN CELL HGB (test code=MCH) picogram 27.0-33.0 MEAN CELL HGB CONCETRATION (test code=MCHC) gram/dL 33.0-36.0 RED CELL DISTRIBUTION WIDTH (test code=RDW) % 11.6-16.2 PLATELET COUNT (test code=PLT) K/mm3 150-450 MEAN PLATELET VOLUME (test code=MPV) fL 6.7-11.0 CTA [id number] 18:31:00 [facility] [address] [address] Patient Name: ELDA BURGOS MR #: [id number] : 1960 Age/Sex: 57/F Req #: [id number] Adm Physician: Ordered by: GREGORIO GARCIA MD Report #: [id number] Location: ER Room/Bed: Procedure: [id number] CT/CTA BRAIN Exam Jacinto e: 01/21/18 Exam Time: 1700 REPORT STATUS: Sign ed History:Dizziness, lower back pain, Comparison studies:None Techni que: Axial images were obtained from the skull base to the vertex. Coronal and sagittal images reconstructed from the axial data. Intravenous contrast: 1 00 cc of Omnipaque 300. Dose modulation, iterative reconstruction, and/or w eight based adjustment of the mA/kV was utilized to reduce the radiation dose to as low as reasonably achievable. Findings: Right internal carotid artery: Patent. No abnormalities. Left internal carotid artery: Patent. No abnormalities. Right vertebral artery: Patent. No abnormalities. Left vertebral artery: Patent. No abnormalities. Basilar artery: Garza nt. No abnormalities. Posterior cerebral arteries: Patent. No abnormaliti es. Anatomical variants: Acom: Patent . Pcoms: Not well visualized. V ertebral arteries: Codominant . IMPRESSION: 1. No intracranial vascu lar abnormality. 2. No intracranial abnormality Signed by: DR Brett Rahman M.D. on 01/21/2018 6:36 PM Dictated By: BRETT MALONE MD 35 Transcrib ed By: CAMACHO on 01/21/181835 COPY TO: GREGORIO GARCIA MD CT LUMBAR SPINE [id number] 18:22:00 [place] [address] Patient Name: ELDA BURGOS MR #: [id number] : 1960 Age/Sex: 57/F Req #: [id number] Adm Physician: Ordered by: GREGORIO GARCIA MD Report #: [id number] Location: ER Room/Bed: Procedure: [id number] CT/CT LUMBAR SPINE WO Exam Date: 01/21/18 Exam Time: 1700 REPORT STA TUS: Signed History: Low back pain Comparison studies: None Technique: Axial images were obtained from T11 through the sacrum. Coronal and sagitt al images reconstructed from the axial data. Intravenous contrast: None D ose modulation, iterative reconstruction, and/or weight based adjustment of th e mA/kV was utilized to reduce the radiation dose to as low as reasonably achi evable. Findings: Number of non-rib bearing vertebral bodies: 5 A lignment: Grade 1 anterolisthesis of L5 over S1 with bilateral spondylolysis. No scoliosis. Soft tissues: No paraspinal abnormalities. Atherosclerotic calc ifications of the abdominal aorta Paraspinal muscles: Unremarkable. Carlton tebrae: No acute fractures, infection or neoplasm. Central L4 vertebral body loss of height with superior endplate Schmorl mild Degenerative changes: L1-L2: No abnormalities. L2-L3: No abnormalities. L3-L4: Mild disc degeneration with decreased intervertebral space and L4 superior end plate Schmorl node. Diffuse bulge and mild facet hypertrophy results in mild c anal stenosis and mild bilateral foraminal narrowing L4-L5: Mild disc deg eneration through 2 space. His simple and mild facet hypertrophy results in mi ld canal L5-S1: Is degeneration with decreased intervertebral space. Kvng opathy. The result in canal stenosis and severe bilateral foraminal narrowing Sacroiliac joints: Mild degenerative changes with sclerotic changes. Contrast is seen in the collecting systems. IMPRESSION: 1. No acute abnormality. 2. Severe bilateral foraminal narrowing at L5-S1 secondary to grade 1 retrolistheses. Bilateral L5 pars interarticulares defect. 3. Other mild changes as described above Signed by: DR Brett Rahman M.D. on 01/21/2018 6:30 PM Dictated By: BRETT MALONE MD Electron ically Signed By: BRETT MALONE MD on 01/21/181829 Transcribed By: BETTY Zuleta on 01/21/181829 COPY TO: GREGORIO GARCIA MD CHEST SINGLE (PORTABLE)2018-01-21 17:04:00 [place] [address] Patient Name: ELDA BURGOS MR #: [id number] : 1960 Age/Sex: 57/F Req #: [id number] Adm Physician: Ordered by: GREGORIO GARCIA MD Report #: [id number] Location: ER Room/Bed: Procedure: [id number] DX/CHEST SINGLE (TEN BLE) Exam Date: 01/21/18 Exam Time: 1643 REPOR T STATUS: Signed Examination: Single AP view of the chest. COMPARISON: N one. INDICATION: Shortness of breath DISCUSSION: Lines/tubes : None. Lungs: The lungs are well inflated and clear. No pneumonia or pul monary edema. Pleura: No pleural effusion or pneumothorax. Heart and mediastinum: The heart and the mediastinum are unremarkable. Bones and sof t tissues: No acute bony abnormalities. IMPRESSION: 1. No acute cardiopulmonary abnormalities. Signed by: Dr. Mian Mesa M.D. on 01/21 5:05 PM Dictated By: MIAN MESA MD 04 Transcribed By: CAMACHO on 01/21/181704 COPY TO: GREGORIO GARCIA MD SP LUMBAR, COMPLETE MIN 4VW [place] [address] Patient Name: ELDA BURGOS MR #: [id number] : 0 1960 Age/Sex: 56/F Req #: [id number] Adm Physician: Ordered by: LAURA COLORADO MD Report #: [id number] Location: ER Room/Bed: Procedure: [id number] DX/SP LUMBAR, COMPLETE MIN 4VW Exam Date: 05/16/17 Exam Time: 0240 REPORT STA TUS: Signed EXAM: LUMBAR SPINE, AP, lateral, bilateral oblique and coned late ral view DATE: 05/16/2017 2:17 AM Time stamp on exam: 0236 hours INDICATION: Pain in lower back after lifting heavy item COMPARISON: None FINDINGS: BONES: Five lumbar-type vertebral bodies. Grade 1 anterolisthesis of L5 w ith respect to S1. No acute displaced fractures. No lytic or blastic lesions . DISCS: The disc-spaces are well-maintained. JOINTS: Facet arthro kian bilaterally at L5/S1. Suspected bilateral pars defects. SOFT TISSUES: Unremarkable IMPRESSION: Grade 1 anterolisthesis of L5 with respect to S1 secondary to facet arthropathy and suspected bilateral pars defects. Signed by: Dr. Abbie Candelaria M.D. on 05/16/2017 3:07 AM Dictated By: Ciarra CANDELARIA MD 6 Tr anscribed By: CAMACHO on 05/16/17306 COPY TO: LAURA COLORADO MD
[2019-05-30 14:00] VITALS: BP 167/83
--- NOTE | 2019-05-31 15:24 | NUR ---
Date of surgery: 05/30/2019 Preoperative diagnosis: Anterior cruciate ligament tear of left knee, lateral meniscus root tear, Postoperative diagnosis: Anterior cruciate ligament tear of left knee, lateral meniscus root tear, impinging Plica Procedure performed: 1. Arthroscopic-assisted anterior cruciate ligament reconstruction with allograft Achilles of left knee. 2. Lateral meniscus root repair 3. Excision of Plica Surgeon: Zoya Estevez, DO Assist 1: #1 General #2 Regional block Complications: None Tourniquet time: 0 Min. Femoral Hardware: Zuluaga [employer] Nephew Regenesorb Screw Tibial Hardware 1: [employer] Regenesorb Screw x 2, Zuluaga [employer] Nephew Endobutton, Arthrex Swivelock x 2 EBL: < 20 cc Indications: Due to persistent pain, instability and limitations on activity combined with findings on exam which included a lax ricki and anterior drawer and imaging, the patient requests surgical treatment. Nonoperative care and alternative surgical options were reviewed. We agreed that this provided the best risk/benefit profile for this patient, understanding and accepting risks of recurrent//persistent symptoms, infection, bleeding, stiffness, neurological/vascular damage, failure to improve and anesthetic complication (as reviewed by anesthesia service). Also, the patient understands that arthroscopic treatment of articular cartilage lesions provides temporary incomplete relief but that meniscal symptoms should be well addressed. We discussed graft options and that none were perfect, but that achilles allograft provided the best risk/benefit profile for this patient. Findings: Articular cartilage -Patella Grade 1 -Trochlea Grade 3 Medial Compartment - Femoral Condyle Grade 1 - Medial Plateau Grade 1 - Meniscus - Normal Lateral Compartment -Femoral Condyle Grade 1 -Tibal Plateau Grade 1 - Meniscus Unstable root tear Cruciate Ligaments - Complete ACL Tear Synovium Indications for surgery: The patient had a left knee injury, examination, and radiographic/imaging findings consistent with an anterior cruciate ligament tear. We reviewed the alt ernatives of surgery versus nonop care, graft choices and their respective risks / benefits. Due to the desire to remain active, surgery was chosen after reviewing alternatives, risks ( including but not limited to graft failure, stiffness, infection, VTE, symptomatic hardware, anesthetic complication etc), benefits, potential complications. The patient (and relevant family) wished to proceed with the aforementioned surgery. Due to knee instability, clinical exam and desire to continue athletic activities, an ACL Reconstruction was recommended. He spends a lot of time on his knees and due to the wear on his patellofemoral joint, the patient and I agreed on the use of an Achilles Allograft. Procedure in detail: After appropriate permits were obtained, the patient was taken to the operating room and placed upon the operating room table. The patient underwent general anesthesia with the anesthesia service. The patient received preoperative intravenous antibiotics. A well-padded tourniquet was placed on the thigh and the contralateral leg was placed in a well leg cordoba. The extremity was prepped and draped in the usual standard fashion. A surgical timeout was made. Diagnostic arthroscopy was performed and the above findings were discovered. The Achilles allograft as then rinsed and the graft was then fashioned to a roughly cylindrical bone block and splitting the distal tails of the graft to accept interference screw fixation. A combination of rotary pb was used to remove the anterior cruciate ligament remnant, perform a limited notchplasty, and demarcate the femoral and tibial footprints of the anterior cruciate ligament. The articular surfaces described above chondral damage were stable and did not require debridement of unstable flaps/fragments, resecting the minimal tissue needed to obtain stable margins. The lateral meniscus was debrided to establish a well-balanced rim, removing approximately 10%of the meniscus. The root was repaired by the placement of two luggage tag stitches that were passed through a tunnel through the anteromedial tibial cortex. The center portion of the femoral footprint was marked with an awl. Using a low profile reamer through anteromedial portal in the hyperflexed position the femoral tunnel was created in the center of the femoral footprint. The posterior wall was intact and approximately 1-2 mm. All debris was removed from the knee. The tibial tunnel was created in the center of the tibial footprint and the graft shuttled across the knee into the femoral tunnel. There it was secured with the above hardware anterior-superior to the cancellous aspect of the bone block with the bone tendon junction flush with the internal aperture of the socket. The graft was secure. The knee was brought into near full extension and the tibial portion of the graft was fixated with two screws due to concern for loose fixation. This was also augmented with a swivel lock screw. Next the root repair secured with an anterior cortex button as well as a swivel lock distally. The augmented fixation was due to the concern for tunnel convergence. The graft was inspected and probed and found to have excellent tension, and be free of impingement. There was no hardware prominent in the knee. The knee was found to have full symmetric extension with normal stability exam. The impinging plica was excised with an arthroscopic shaver. The wound was irrigated and closed in layers with 2-0 Vicryl and 3-0 Monocryl. The portals were closed with 3-0 Monocryl. A bulky gauze bandage was applied followed by a compressive IBIS dressing and brace in full extension. The calf was soft and there were normal distal pulses. The patient was extubated and transferred to the recovery room in stabl e condition.
== END | disposition home or self-care (01) ==
LOC: OR 08:16
PROVIDERS: ATTEND Orthopaedic Surgery
DX: S83.512A Sprain of anterior cruciate ligament of left knee, initial encounter (principal); S83.272A Complex tear of lateral meniscus, current injury, left knee, initial encounter; M67.52 Plica syndrome, left knee; I10 Essential (primary) hypertension; I25.10 Atherosclerotic heart disease of native coronary artery without angina pectoris; I25.2 Old myocardial infarction; M32.9 Systemic lupus erythematosus, unspecified; D64.9 Anemia, unspecified; F17.210 Nicotine dependence, cigarettes, uncomplicated; Z88.8 Allergy status to other drugs, medicaments and biological substances; Z01.810 Encounter for preprocedural cardiovascular examination; Z01.812 Encounter for preprocedural laboratory examination; Z01.818 Encounter for other preprocedural examination; Z79.02 Long term (current) use of antithrombotics/antiplatelets; Z95.5 Presence of coronary angioplasty implant and graft
CPT/HCPCS: 29882; 29888; 36415; 71046; 85025; 93005; C1713 ×3; J0690; J2001 ×2; J2175; J2250; J2405; J2704; J2765; J3010

== ENCOUNTER 2020-01-18 22:30 | Emergency (ER) | payer OTHER ==
[~2020-01-18] VITALS: Ht 144.8 cm; Wt 67.6 kg
[~2020-01-18 22:30] MED LIST changes: -BUPIVACAINE 0.25% 30ML SDV INJ ONE; -BUPIVACAINE HCL 0.5% INJ 30 ML VIAL INJ ONE; -CEFAZOLIN SOD 1 GM/NS 50ML 100 ML IV ONE; -EPHEDRINE SULFATE INJ 50 MG/ML VIAL ONE; -FENTANYL CITRATE/PF 100MCG/2 ML INJ ONE; -GLYCOPYRROLATE INJ 0.2 MG/ML VIAL ONE; -LABETALOL HCL 0 ML ONE; -LIDOCAINE 1% W/EPINEPHRINE 20 ML VIAL ONE; -LIDOCAINE 2%/ EPINEPHRINE 20ML MDV ONE; -LIDOCAINE HCL 2% LOCAL INJ 5 ML SDV VIAL INJ ONE; -MEPERIDINE HCL INJ 25 MG/ML VIAL ONE; -METOCLOPRAMIDE HCL 10 MG/2ML VIAL ONE; -MIDAZOLAM HCL 2 MG/2 ML VIAL ONE; -ONDANSETRON HCL INJ 2MG/ML 2ML 2 MG/ML VIAL ONE; -PROPOFOL IV EMULSION 10 MG/ML 20 ML VIAL ONE; -SEVOFLURANE INHAL SOLN 250 ML PEN BTL ONE
[2020-01-18] MEDS ORDERED: CLONIDINE HCL 0.1 MG TAB PO ONE (23:00)
[2020-01-18 23:17] LABS: CLARITY,URINE CLEAR (CLEAR); COLOR,URINE YELLOW (YELLOW); KETONES,URINE NEGATIVE (NEGATIVE); LEUKOCYTE ESTERASE ,URINE NEGATIVE (NEGATIVE); NITRITE,URINE NEGATIVE (NEGATIVE); PROTEIN,URINE DIPSTICK TRACE (NEGATIVE)
[2020-01-18 23:18] LABS: AMPHETAMINES SCREEN,URINE NEGATIVE (NEGATIVE); BENZODIAZEPINES SCREEN,URINE POSITIVE (NEGATIVE); BILIRUBIN,URINE LARGE (NEGATIVE); PHENCYCLIDINE SCREEN,URINE NEGATIVE (NEGATIVE); URINE UROBILINOGEN 0.2 mg/dL (0.2 - 1)
[2020-01-18 23:24] LABS: AMORPHOUS SEDIMENT,URINE FEW (FEW); BACTERIA,URINE FEW /HPF; EPITHELIAL CELLS,URINE FEW /LPF; WBC,URINE (MAN) 0-5 /HPF (0-5)
[2020-01-19 02:19] VITALS: BP 150/79
== END 2020-01-19 02:15 | disposition home or self-care (01) ==
LOC: ER 23:23
DX: R50.9 Fever, unspecified (principal); R05 Cough; J40 Bronchitis, not specified as acute or chronic; I16.0 Hypertensive urgency; R51.9 Headache, unspecified; I10 Essential (primary) hypertension; F41.9 Anxiety disorder, unspecified; K21.9 Gastro-esophageal reflux disease without esophagitis; F17.210 Nicotine dependence, cigarettes, uncomplicated
CPT/HCPCS: 70450; 71045; 80307; 81001; 87400; 99283

== ENCOUNTER 2021-09-07 00:19 | Emergency (ER) | payer SELFPAY ==
[~2021-09-07] VITALS: Ht 144.8 cm; Wt 67.6 kg
[2021-09-07] MEDS ORDERED: CLONIDINE HCL 0.1 MG TAB PO ONE (00:30)
[2021-09-07] MEDS ORDERED: CLONIDINE HCL 0.1 MG TAB ONE (00:39)
[2021-09-07 02:23] VITALS: BP 161/80
== END 2021-09-07 02:25 | disposition home or self-care (01) ==
LOC: ER 00:24
DX: K59.00 Constipation, unspecified (principal); R10.10 Upper abdominal pain, unspecified; I10 Essential (primary) hypertension; F41.9 Anxiety disorder, unspecified; F32.A Depression, unspecified; Z88.6 Allergy status to analgesic agent; Z88.8 Allergy status to other drugs, medicaments and biological substances; Z79.02 Long term (current) use of antithrombotics/antiplatelets; Z79.899 Other long term (current) drug therapy
CPT/HCPCS: 74019; 99283

== ENCOUNTER 2022-04-16 19:58 | Emergency (ER) | payer MEDICARE, OTHER ==
[~2022-04-16] VITALS: Ht 144.8 cm; Wt 67.6 kg
[2022-04-16] MEDS ORDERED: LORAZEPAM INJ 2 MG/ML VIAL IV ONE (21:00)
[2022-04-16 21:44] LABS: BASOPHILS % 0.4 % (0.0-1.0); EOSINOPHILS % 0.3 % (0.0-6.0); HEMATOCRIT 44.7 % (34.2-44.1); HEMOGLOBIN 13.6 g/dL (12.0-16.0); LYMPHOCYTES % 14.5 % (18.0-39.1); MEAN CORPUSCULAR HEMOGLOBIN 27.8 pg (28-32); MEAN CORPUSCULAR HGB CONC 30.4 g/dL (31-35); MEAN CORPUSCULAR VOLUME 91.4 fL (81-99); MONOCYTES # (AUTO) 0.3 (0.2-0.8); MONOCYTES % 3.7 % (4.4-11.3); NEUTROPHILS # (AUTO) 5.4 (2.1-6.9); NEUTROPHILS % 80.5 % (38.7-80.0); PLATELET COUNT 250 x10e3/uL (140-360); RED BLOOD COUNT 4.89 x10e6/uL (3.6-5.1); RED CELL DISTRIBUTION WIDTH 13.9 % (11.7-14.4)
[2022-04-16 21:50] LABS: CLARITY,URINE CLEAR (CLEAR); COLOR,URINE YELLOW (YELLOW); KETONES,URINE TRACE (NEGATIVE); LEUKOCYTE ESTERASE ,URINE TRACE (NEGATIVE); NITRITE,URINE NEGATIVE (NEGATIVE); PROTEIN,URINE DIPSTICK 2+ (NEGATIVE); URINE UROBILINOGEN 0.2 mg/dL (0.2 - 1)
[2022-04-16 21:51] LABS: AMPHETAMINES SCREEN,URINE NEGATIVE (NEGATIVE); BENZODIAZEPINES SCREEN,URINE POSITIVE (NEGATIVE); PHENCYCLIDINE SCREEN,URINE NEGATIVE (NEGATIVE)
[2022-04-16 22:00] LABS: ALBUMIN 4.4 g/dL (3.5-5.0); ALBUMIN/GLOBULIN RATIO 1.2 (0.8-2.0); ANION GAP 14.9 mmol/L (8-16); CALCIUM 10.3 mg/dL (8.4-10.2); CREATININE, SERUM 0.74 mg/dL (0.57-1.11); POTASSIUM 3.9 mmol/L (3.5-5.1)
[2022-04-16 22:02] LABS: SALICYLATE < 5.0 mg/dL (0-30)
[2022-04-16 22:12] LABS: RBC,URINE 0-5 /HPF (0-5); WBC,URINE (MAN) 0-5 /HPF (0-5)
[2022-04-16 22:13] LABS: BACTERIA,URINE FEW /HPF; EPITHELIAL CELLS,URINE FEW /LPF
== END 2022-04-17 01:24 | disposition home or self-care (01) ==
LOC: ER 20:12
DX: F32.A Depression, unspecified (principal); F41.9 Anxiety disorder, unspecified; I10 Essential (primary) hypertension; Z20.822 Contact with and (suspected) exposure to COVID-19; Z88.6 Allergy status to analgesic agent; Z88.8 Allergy status to other drugs, medicaments and biological substances; Z79.02 Long term (current) use of antithrombotics/antiplatelets; Z79.899 Other long term (current) drug therapy
CPT/HCPCS: 36415; 80053; 80307; 80320; 80329 ×2; 81001; 84484; 85025; 93005; 99284; J2060; U0002

== ENCOUNTER 2022-09-11 21:02 | Emergency (ER) | payer OTHER ==
[~2022-09-11] VITALS: Ht 144.8 cm; Wt 67.6 kg
[~2022-09-11 21:02] MED LIST changes: -CEFDINIR300 MG PO; -FENTANYL CITRATE/PF 100MCG/2 ML INJ ONE; -GLUCAGON FOR INJ 1 MG VIAL ONE; -GLYCOPYRROLATE INJ 0.2 MG/ML VIAL ONE; -HYDRALAZINE HCL 20 MG/ML VIAL IV ONE; -HYDRALAZINE HCL 20 MG/ML VIAL ONE; -HYOSCYAMINE SULFATE 0.5 MG/ML INJ ONE; -KETAMINE HCL INJ 50 MG/ML 10 ML VIAL ONE; -LACTATED RINGER'S 1,000 ML ONE; -LIDOCAINE HCL 2% LOCAL INJ 5 ML SDV VIAL INJ ONE; -METOCLOPRAMIDE HCL 10 MG/2ML VIAL ONE; -MIDAZOLAM HCL 2 MG/2 ML VIAL ONE; -ONDANSETRON HCL INJ 2MG/ML 2ML 2 MG/ML VIAL IV ONE; -ONDANSETRON HCL INJ 2MG/ML 2ML 2 MG/ML VIAL ONE; -ONDANSETRON ODT4 MG PO; -POVIDONE IODINE 0.05% 0.05 % ML PO ONE; -PROPOFOL IV EMULSION 10 MG/ML 20 ML VIAL ONE
[2022-09-11] MEDS ORDERED: ONDANSETRON HCL INJ 2MG/ML 2ML 2 MG/ML VIAL IV STA (21:48)
[2022-09-11] MEDS ORDERED: SODIUM CHLORIDE 0.9% 1000ML 1,000 ML IV ONE (22:00)
[2022-09-11] MEDS ORDERED: Morphine 2mg Syringe 2 MG/ML SYR IV ONE (22:00)
[2022-09-11 22:23] LABS: BASOPHILS % 0.2 % (0.0-1.0); EOSINOPHILS % 0.1 % (0.0-6.0); HEMATOCRIT 42.3 % (34.2-44.1); HEMOGLOBIN 13.8 g/dL (12.0-16.0); LYMPHOCYTES # (AUTO) 0.6 (1.0-3.2); MEAN CORPUSCULAR HEMOGLOBIN 27.9 pg (28-32); MEAN CORPUSCULAR HGB CONC 32.6 g/dL (31-35); MEAN CORPUSCULAR VOLUME 85.5 fL (81-99); MONOCYTES # (AUTO) 0.4 (0.2-0.8); MONOCYTES % 2.4 % (4.4-11.3); NEUTROPHILS # (AUTO) 13.4 (2.1-6.9); NEUTROPHILS % 92.7 % (38.7-80.0); PLATELET COUNT 153 x10e3/uL (140-360); RED BLOOD COUNT 4.95 x10e6/uL (3.6-5.1); RED CELL DISTRIBUTION WIDTH 14.7 % (11.7-14.4)
[2022-09-11 22:59] LABS: CLARITY,URINE SL CLOUDY (CLEAR); COLOR,URINE YELLOW (YELLOW); KETONES,URINE 2+ (NEGATIVE); LEUKOCYTE ESTERASE ,URINE NEGATIVE (NEGATIVE); NITRITE,URINE NEGATIVE (NEGATIVE); PROTEIN,URINE DIPSTICK >=300 (NEGATIVE); URINE UROBILINOGEN 0.2 mg/dL (0.2 - 1)
[2022-09-11 23:05] LABS: ALBUMIN 4.7 g/dL (3.5-5.0); ALBUMIN/GLOBULIN RATIO 1.2 (0.8-2.0); ANION GAP 22.8 mmol/L (8-16); CALCIUM 10.2 mg/dL (8.4-10.2); CREATININE, SERUM 0.76 mg/dL (0.57-1.11); POTASSIUM 4.8 mmol/L (3.5-5.1)
[2022-09-11 23:07] LABS: BACTERIA,URINE MANY /HPF; EPITHELIAL CELLS,URINE FEW /LPF; RBC,URINE 21-50 /HPF (0-5)
[2022-09-11 23:08] LABS: MUCUS,URINE FEW (RARE)
[2022-09-11] MEDS ORDERED: IOPAMIDOL 370 MG/ML 100 ML INFUS..BTL INJ ONE (23:22)
[2022-09-12] MEDS ORDERED: HYDRALAZINE HCL 20 MG/ML VIAL IV STA (00:09)
[2022-09-12] MEDS ORDERED: CEFDINIR300 MG PO (00:12)
[2022-09-12] MEDS ORDERED: ONDANSETRON ODT4 MG PO (00:12)
[2022-09-12 01:16] VITALS: BP 166/94; PULSE 82; RESP 16; TEMP 98.8; O2SAT 100
== END 2022-09-12 01:09 | disposition home or self-care (01) ==
LOC: ER 21:10
DX: R11.2 Nausea with vomiting, unspecified (principal); R10.9 Unspecified abdominal pain; K21.9 Gastro-esophageal reflux disease without esophagitis; I10 Essential (primary) hypertension; F41.9 Anxiety disorder, unspecified; G47.00 Insomnia, unspecified; F17.210 Nicotine dependence, cigarettes, uncomplicated
CPT/HCPCS: 36415; 74177; 80053; 81001; 82550; 82553; 83690; 84484; 85025; 99284; C9113; J0360; J0696; J2270; J2405; J7030; Q9967

== ENCOUNTER → 2022-09-11 | Day surgery (SDC) | payer MEDICARE, OTHER ==
[2022-09-05 12:36] LABS: BASOPHILS % 0.4 % (0.0-1.0); EOSINOPHILS # (AUTO) 0.2 (0.0-0.4); EOSINOPHILS % 2.2 % (0.0-6.0); HEMOGLOBIN 12.1 g/dL (12.0-16.0); LYMPHOCYTES # (AUTO) 2.7 (1.0-3.2); LYMPHOCYTES % 36.8 % (18.0-39.1); MEAN CORPUSCULAR HEMOGLOBIN 28.1 pg (28-32); MEAN CORPUSCULAR HGB CONC 31.8 g/dL (31-35); MEAN CORPUSCULAR VOLUME 88.2 fL (81-99); MONOCYTES # (AUTO) 0.7 (0.2-0.8); NEUTROPHILS # (AUTO) 3.8 (2.1-6.9); NEUTROPHILS % 51.3 % (38.7-80.0); PLATELET COUNT 209 x10e3/uL (140-360); RED BLOOD COUNT 4.31 x10e6/uL (3.6-5.1); RED CELL DISTRIBUTION WIDTH 14.4 % (11.7-14.4)
[~2022-09-11] MED LIST changes: +CEFDINIR300 MG PO; +DIAZEPAM5 MG PO; +FAMOTIDINE20 MG PO; +FENTANYL CITRATE/PF 100MCG/2 ML INJ ONE; +GLUCAGON FOR INJ 1 MG VIAL ONE; +GLYCOPYRROLATE INJ 0.2 MG/ML VIAL ONE; +HYDRALAZINE HCL 20 MG/ML VIAL IV ONE; +HYDRALAZINE HCL 20 MG/ML VIAL ONE; +HYDROCODON-ACE1 EAC9 PO; +HYOSCYAMINE SULFATE 0.5 MG/ML INJ ONE; +KETAMINE HCL INJ 50 MG/ML 10 ML VIAL ONE; +LACTATED RINGER'S 1,000 ML ONE; +LIDOCAINE HCL 2% LOCAL INJ 5 ML SDV VIAL INJ ONE; +METOCLOPRAMIDE HCL 10 MG/2ML VIAL ONE; +MIDAZOLAM HCL 2 MG/2 ML VIAL ONE; +ONDANSETRON HCL INJ 2MG/ML 2ML 2 MG/ML VIAL IV ONE; +ONDANSETRON HCL INJ 2MG/ML 2ML 2 MG/ML VIAL ONE; +ONDANSETRON ODT4 MG PO; +POVIDONE IODINE 0.05% 0.05 % ML PO ONE; +PROPOFOL IV EMULSION 10 MG/ML 20 ML VIAL ONE; +PROZAC40 MG PO
[2022-09-11 11:51] VITALS: TEMP 97.9
[2022-09-11 13:15] VITALS: BP 171/90; PULSE 60; RESP 15; O2SAT 96
== END | disposition home or self-care (01) ==
LOC: OR 08:43
PROVIDERS: ATTEND Internal Medicine Gastroenterology
DX: K29.70 Gastritis, unspecified, without bleeding (principal); D12.3 Benign neoplasm of transverse colon; D12.5 Benign neoplasm of sigmoid colon; D12.8 Benign neoplasm of rectum; K22.2 Esophageal obstruction; K52.9 Noninfective gastroenteritis and colitis, unspecified; K20.90 Esophagitis, unspecified without bleeding; K22.89 Other specified disease of esophagus; K44.9 Diaphragmatic hernia without obstruction or gangrene; K21.9 Gastro-esophageal reflux disease without esophagitis; K57.30 Diverticulosis of large intestine without perforation or abscess without bleeding; K62.89 Other specified diseases of anus and rectum; K59.09 Other constipation; K64.8 Other hemorrhoids; Z71.3 Dietary counseling and surveillance; R63.0 Anorexia; I10 Essential (primary) hypertension; Z71.89 Other specified counseling; I25.119 Atherosclerotic heart disease of native coronary artery with unspecified angina pectoris; I25.2 Old myocardial infarction; M48.061 Spinal stenosis, lumbar region without neurogenic claudication; F41.9 Anxiety disorder, unspecified; F32.A Depression, unspecified; F17.210 Nicotine dependence, cigarettes, uncomplicated; Z71.6 Tobacco abuse counseling; Z88.8 Allergy status to other drugs, medicaments and biological substances; Z01.810 Encounter for preprocedural cardiovascular examination; Z01.812 Encounter for preprocedural laboratory examination; Z79.899 Other long term (current) drug therapy; Z95.5 Presence of coronary angioplasty implant and graft; Z68.26 Body mass index [BMI] 26.0-26.9, adult; Z80.0 Family history of malignant neoplasm of digestive organs
CPT/HCPCS: 36415; 43239; 43450; 45380; 45385; 83630; 83993; 85025; 87045; 87177; 87324; 87328; 87449; 93005; C9113; J0360; J1610; J1980; J2001; J2250; J2405; J2704; J2765; J3010; J7121; 45378

== ENCOUNTER 2022-09-21 19:29 | Inpatient (IN) | payer MEDICARE, OTHER ==
[~2022-09-21] VITALS: Ht 144.8 cm; Wt 67.6 kg
[~2022-09-21 19:29] MED LIST changes: +CEFDINIR300 MG PO; +ONDANSETRON ODT4 MG PO
[2022-09-21 20:02] LABS: BASOPHILS % 0.3 % (0.0-1.0); HEMATOCRIT 42.1 % (34.2-44.1); HEMOGLOBIN 14.3 g/dL (12.0-16.0); LYMPHOCYTES # (AUTO) 0.6 (1.0-3.2); LYMPHOCYTES % 5.6 % (18.0-39.1); MEAN CORPUSCULAR HEMOGLOBIN 28.1 pg (28-32); MEAN CORPUSCULAR VOLUME 82.9 fL (81-99); MONOCYTES # (AUTO) 0.4 (0.2-0.8); MONOCYTES % 3.4 % (4.4-11.3); NEUTROPHILS # (AUTO) 9.2 (2.1-6.9); NEUTROPHILS % 90.3 % (38.7-80.0); PLATELET COUNT 231 x10e3/uL (140-360); RED BLOOD COUNT 5.08 x10e6/uL (3.6-5.1); RED CELL DISTRIBUTION WIDTH 13.9 % (11.7-14.4)
[2022-09-21 20:24] LABS: ALBUMIN 3.9 g/dL (3.5-5.0); ANION GAP 19.2 mmol/L (8-16); CALCIUM 10.2 mg/dL (8.4-10.2); CREATININE, SERUM 0.85 mg/dL (0.57-1.11); POTASSIUM 3.2 mmol/L (3.5-5.1)
[2022-09-21] MEDS ORDERED: HYDRALAZINE HCL 20 MG/ML VIAL IV STA ×2 (20:33)
[2022-09-21 20:40] LABS: CLARITY,URINE CLEAR (CLEAR); COLOR,URINE YELLOW (YELLOW); KETONES,URINE 2+ (NEGATIVE); LEUKOCYTE ESTERASE ,URINE NEGATIVE (NEGATIVE); NITRITE,URINE NEGATIVE (NEGATIVE); PROTEIN,URINE DIPSTICK >=300 (NEGATIVE)
[2022-09-21] MEDS ORDERED: ONDANSETRON HCL INJ 2MG/ML 2ML 2 MG/ML VIAL ONE (20:40)
[2022-09-21] MEDS ORDERED: ONDANSETRON HCL INJ 2MG/ML 2ML 2 MG/ML VIAL IV STA (20:40)
[2022-09-21 20:41] LABS: URINE UROBILINOGEN 0.2 mg/dL (0.2 - 1)
[2022-09-21 20:56] LABS: BACTERIA,URINE MODERATE /HPF; EPITHELIAL CELLS,URINE FEW /LPF; RBC,URINE 21-50 /HPF (0-5); WBC,URINE (MAN) 0-5 /HPF (0-5)
[2022-09-21] MEDS ORDERED: HALOPERIDOL LACTATE 5 MG/ML VIAL IV ONE (21:45)
[2022-09-21] MEDS ORDERED: HALOPERIDOL LACTATE 5 MG/ML VIAL ONE (21:47)
[2022-09-21] MEDS ORDERED: KCL 20MEQ/.9 SOD CHL 1,000 ML IV ONE ×2 (22:59→23:00)
[2022-09-21] MEDS ORDERED: DEXTROSE 50% SYRINGE 50 ML IV PRN (23:00)
[2022-09-21] MEDS: FAMOTIDINE 20 MG/2 ML VIAL IV SCH (23:01)
[2022-09-21] MEDS: METOCLOPRAMIDE HCL 10 MG/2ML VIAL IV SCH (23:01)
[2022-09-22] VITALS (9 sets, daily range): BP systolic 160–215; BP diastolic 70–112; PULSE 66–91; RESP 15–19; TEMP 98.1–99.2; O2SAT 97–100
[2022-09-22] MEDS ORDERED: ACETAMINOPHEN 1000 MG/100 ML IV STA (03:53)
[2022-09-22] MEDS: METOCLOPRAMIDE HCL 10 MG/2ML VIAL IV SCH ×4 (05:33→23:36)
[2022-09-22 05:53] LABS: BASOPHILS % 0.3 % (0.0-1.0); HEMATOCRIT 38.1 % (34.2-44.1); HEMOGLOBIN 12.4 g/dL (12.0-16.0); LYMPHOCYTES # (AUTO) 1.4 (1.0-3.2); LYMPHOCYTES % 14.1 % (18.0-39.1); MEAN CORPUSCULAR HEMOGLOBIN 28.2 pg (28-32); MEAN CORPUSCULAR HGB CONC 32.5 g/dL (31-35); MEAN CORPUSCULAR VOLUME 86.6 fL (81-99); MONOCYTES # (AUTO) 1.2 (0.2-0.8); MONOCYTES % 11.5 % (4.4-11.3); NEUTROPHILS # (AUTO) 7.4 (2.1-6.9); NEUTROPHILS % 73.6 % (38.7-80.0); PLATELET COUNT 224 x10e3/uL (140-360); RED CELL DISTRIBUTION WIDTH 13.8 % (11.7-14.4)
[2022-09-22 06:12] LABS: ALBUMIN 3.4 g/dL (3.5-5.0); ANION GAP 12.4 mmol/L (8-16); CALCIUM 9.2 mg/dL (8.4-10.2); CREATININE, SERUM 0.87 mg/dL (0.57-1.11); POTASSIUM 3.4 mmol/L (3.5-5.1)
[2022-09-22] MEDS ORDERED: INSULIN REGULAR, HUMAN 100 UNIT/1 ML SQ SCH (07:30)
[2022-09-22] MEDS: HYDRALAZINE HCL 20 MG/ML VIAL IV PRN ×2 (11:34→15:59)
[2022-09-22] MEDS ORDERED: POTASSIUM CHLORIDE 10MEQ EA PO ONE (14:30)
[2022-09-22] MEDS: ALPRAZOLAM 1 MG TAB PO PRN (14:41)
[2022-09-22] MEDS: LISINOPRIL 20 MG TAB PO SCH (14:43)
[2022-09-22] MEDS: FAMOTIDINE 20 MG/2 ML VIAL IV SCH (16:00)
[2022-09-22] MEDS ORDERED: Morphine 2mg Syringe 2 MG/ML SYR IV ONE (16:15)
[2022-09-22] MEDS ORDERED: Morphine 2mg Syringe 2 MG/ML SYR IV PRN (17:15)
[2022-09-22] MEDS ORDERED: SODIUM CHLORIDE 0.9% 1000ML 1,000 ML IV SCH (17:15)
[2022-09-22] MEDS ORDERED: DONNATAL/LIDOCAINE/MAALOX 30 ML SUSP PO ONE ×2 (20:15→20:45)
[2022-09-22] MEDS: ATORVASTATIN 40 MG TAB PO SCH (21:09)
[2022-09-22] MEDS: Morphine 2mg Syringe 2 MG/ML SYR IV PRN (21:13)
[2022-09-22] MEDS: ONDANSETRON HCL INJ 2MG/ML 2ML 2 MG/ML VIAL IV PRN (21:14)
[2022-09-23] VITALS (7 sets, daily range): BP systolic 127–169; BP diastolic 58–84; PULSE 59–84; RESP 16–21; TEMP 97.8–99.4; O2SAT 94–98
[2022-09-23] MEDS: METOCLOPRAMIDE HCL 10 MG/2ML VIAL IV SCH ×3 (05:33→16:54)
[2022-09-23 05:57] LABS: BASOPHILS # (AUTO) 0.1 (0.0-0.1); BASOPHILS % 0.6 % (0.0-1.0); EOSINOPHILS # (AUTO) 0.1 (0.0-0.4); EOSINOPHILS % 1.3 % (0.0-6.0); HEMATOCRIT 36.6 % (34.2-44.1); HEMOGLOBIN 11.5 g/dL (12.0-16.0); LYMPHOCYTES # (AUTO) 1.9 (1.0-3.2); LYMPHOCYTES % 18.9 % (18.0-39.1); MEAN CORPUSCULAR HEMOGLOBIN 27.7 pg (28-32); MEAN CORPUSCULAR HGB CONC 31.4 g/dL (31-35); MEAN CORPUSCULAR VOLUME 88.2 fL (81-99); MONOCYTES # (AUTO) 0.9 (0.2-0.8); MONOCYTES % 9.4 % (4.4-11.3); NEUTROPHILS # (AUTO) 6.9 (2.1-6.9); NEUTROPHILS % 69.2 % (38.7-80.0); PLATELET COUNT 218 x10e3/uL (140-360); RED BLOOD COUNT 4.15 x10e6/uL (3.6-5.1); RED CELL DISTRIBUTION WIDTH 14.2 % (11.7-14.4)
[2022-09-23 06:20] LABS: ANION GAP 12.4 mmol/L (8-16); CREATININE, SERUM 0.79 mg/dL (0.57-1.11); POTASSIUM 3.4 mmol/L (3.5-5.1)
[2022-09-23] MEDS: LISINOPRIL 20 MG TAB PO SCH (09:18)
[2022-09-23] MEDS: FAMOTIDINE 20 MG/2 ML VIAL IV SCH ×2 (09:19→16:11)
[2022-09-23] MEDS: Morphine 2mg Syringe 2 MG/ML SYR IV PRN ×4 (09:24→21:18)
[2022-09-23] MEDS ORDERED: IOPAMIDOL 370 MG/ML 100 ML INFUS..BTL INJ ONE (11:12)
[2022-09-23] MEDS ORDERED: SODIUM CHLORIDE 0.9% 100 ML ONE (11:12)
[2022-09-23] MEDS: DICYCLOMINE HCL 20 MG TAB PO SCH ×2 (16:11→21:12)
[2022-09-23] MEDS: ALPRAZOLAM 1 MG TAB PO PRN ×2 (16:25→21:17)
[2022-09-23] MEDS: ATORVASTATIN 40 MG TAB PO SCH (21:13)
[2022-09-23] MEDS: ONDANSETRON HCL INJ 2MG/ML 2ML 2 MG/ML VIAL IV PRN (21:17)
[2022-09-24] VITALS (7 sets, daily range): BP systolic 122–160; BP diastolic 64–74; PULSE 56–72; RESP 15–18; TEMP 98–99.1; O2SAT 96–98
[2022-09-24] MEDS: METOCLOPRAMIDE HCL 10 MG/2ML VIAL IV SCH ×4 (00:17→18:11)
[2022-09-24] MEDS: Morphine 2mg Syringe 2 MG/ML SYR IV PRN ×5 (00:18→22:03)
[2022-09-24 05:46] LABS: BASOPHILS % 0.4 % (0.0-1.0); EOSINOPHILS # (AUTO) 0.2 (0.0-0.4); EOSINOPHILS % 1.8 % (0.0-6.0); HEMATOCRIT 31.1 % (34.2-44.1); HEMOGLOBIN 10.1 g/dL (12.0-16.0); LYMPHOCYTES # (AUTO) 2.5 (1.0-3.2); MEAN CORPUSCULAR HEMOGLOBIN 27.9 pg (28-32); MEAN CORPUSCULAR HGB CONC 32.5 g/dL (31-35); MEAN CORPUSCULAR VOLUME 85.9 fL (81-99); MONOCYTES # (AUTO) 1.1 (0.2-0.8); MONOCYTES % 9.8 % (4.4-11.3); NEUTROPHILS % 64.5 % (38.7-80.0); PLATELET COUNT 223 x10e3/uL (140-360); RED BLOOD COUNT 3.62 x10e6/uL (3.6-5.1); RED CELL DISTRIBUTION WIDTH 14.4 % (11.7-14.4)
[2022-09-24 06:16] LABS: CALCIUM 8.6 mg/dL (8.4-10.2); CREATININE, SERUM 0.78 mg/dL (0.57-1.11)
[2022-09-24] MEDS: FAMOTIDINE 20 MG/2 ML VIAL IV SCH ×2 (08:28→16:29)
[2022-09-24] MEDS: DICYCLOMINE HCL 20 MG TAB PO SCH ×3 (08:28→21:59)
[2022-09-24] MEDS: SUCRALFATE 1 GM TAB PO SCH ×4 (08:28→21:59)
[2022-09-24] MEDS: LISINOPRIL 20 MG TAB PO SCH (08:28)
[2022-09-24] MEDS: ALPRAZOLAM 1 MG TAB PO PRN ×2 (08:37→21:59)
[2022-09-24] MEDS ORDERED: CIPROFLOXACIN 200 MG/D5W 100ML 100 ML IV SCH (09:30)
[2022-09-24] MEDS ORDERED: CIPROFLOXACIN 400 MG/D5W 200ML 200 ML IV SCH (11:00)
[2022-09-24] MEDS: POTASSIUM CHLORIDE 20MEQ/100ML 100 ML IV SCH ×2 (12:05→15:05)
[2022-09-24] MEDS: METRONIDAZOLE 500MG/NS 100ML 100 ML IV SCH ×2 (12:21→16:25)
[2022-09-24] MEDS ORDERED: DIPHENHYDRAMINE HCL INJ 50 MG/ML VIAL IV PRN (17:15)
[2022-09-24] MEDS: ATORVASTATIN 40 MG TAB PO SCH (21:59)
[2022-09-25] VITALS (8 sets, daily range): BP systolic 125–185; BP diastolic 67–85; PULSE 58–70; RESP 14–20; TEMP 97.3–98.7; O2SAT 96–100
[2022-09-25] MEDS: METRONIDAZOLE 500MG/NS 100ML 100 ML IV SCH ×4 (00:49→23:10)
[2022-09-25] MEDS: METOCLOPRAMIDE HCL 10 MG/2ML VIAL IV SCH ×5 (00:49→23:10)
[2022-09-25] MEDS ORDERED: SODIUM CHLORIDE 0.9% 500ML 500 ML ONE (02:02)
[2022-09-25] MEDS: Morphine 2mg Syringe 2 MG/ML SYR IV PRN ×3 (05:39→23:11)
[2022-09-25 06:51] LABS: BASOPHILS % 0.4 % (0.0-1.0); EOSINOPHILS # (AUTO) 0.2 (0.0-0.4); HEMATOCRIT 29.6 % (34.2-44.1); HEMOGLOBIN 9.5 g/dL (12.0-16.0); LYMPHOCYTES # (AUTO) 1.9 (1.0-3.2); LYMPHOCYTES % 23.5 % (18.0-39.1); MEAN CORPUSCULAR HEMOGLOBIN 27.6 pg (28-32); MEAN CORPUSCULAR HGB CONC 32.1 g/dL (31-35); MONOCYTES # (AUTO) 0.7 (0.2-0.8); MONOCYTES % 8.3 % (4.4-11.3); NEUTROPHILS # (AUTO) 5.2 (2.1-6.9); NEUTROPHILS % 64.4 % (38.7-80.0); PLATELET COUNT 213 x10e3/uL (140-360); RED BLOOD COUNT 3.44 x10e6/uL (3.6-5.1); RED CELL DISTRIBUTION WIDTH 14.4 % (11.7-14.4)
[2022-09-25 07:07] LABS: ANION GAP 8.9 mmol/L (8-16); CALCIUM 8.1 mg/dL (8.4-10.2); CREATININE, SERUM 0.67 mg/dL (0.57-1.11); POTASSIUM 3.9 mmol/L (3.5-5.1)
[2022-09-25] MEDS: DICYCLOMINE HCL 20 MG TAB PO SCH ×3 (08:40→20:44)
[2022-09-25] MEDS: FAMOTIDINE 20 MG/2 ML VIAL IV SCH ×2 (08:41→15:40)
[2022-09-25] MEDS: SUCRALFATE 1 GM TAB PO SCH ×4 (08:41→20:43)
[2022-09-25] MEDS: LISINOPRIL 20 MG TAB PO SCH (08:41)
[2022-09-25] MEDS: ALPRAZOLAM 1 MG TAB PO PRN ×2 (08:53→20:43)
[2022-09-25] MEDS: ATORVASTATIN 40 MG TAB PO SCH (20:43)
[2022-09-26] VITALS (7 sets, daily range): BP systolic 145–178; BP diastolic 72–90; PULSE 54–65; RESP 16–18; TEMP 98.2–99.2; O2SAT 99–100
[2022-09-26] MEDS: HYDRALAZINE HCL 20 MG/ML VIAL IV PRN ×2 (00:51→21:27)
[2022-09-26] MEDS: Morphine 2mg Syringe 2 MG/ML SYR IV PRN ×3 (04:38→21:28)
[2022-09-26] MEDS: METOCLOPRAMIDE HCL 10 MG/2ML VIAL IV SCH ×3 (06:40→18:36)
[2022-09-26] MEDS: FAMOTIDINE 20 MG/2 ML VIAL IV SCH ×3 (06:43→16:39)
[2022-09-26] MEDS: DICYCLOMINE HCL 20 MG TAB PO SCH ×3 (09:55→21:27)
[2022-09-26] MEDS: SUCRALFATE 1 GM TAB PO SCH ×4 (09:55→21:27)
[2022-09-26] MEDS: LISINOPRIL 20 MG TAB PO SCH (09:55)
[2022-09-26] MEDS: ONDANSETRON HCL INJ 2MG/ML 2ML 2 MG/ML VIAL IV PRN ×2 (09:58→21:28)
[2022-09-26] MEDS: ALPRAZOLAM 1 MG TAB PO PRN ×2 (09:58→21:28)
[2022-09-26] MEDS: METRONIDAZOLE 500MG/NS 100ML 100 ML IV SCH ×2 (09:58→16:39)
[2022-09-26] MEDS: ATORVASTATIN 40 MG TAB PO SCH (21:27)
[2022-09-27] VITALS: BP 147/73; PULSE 65; RESP 18; TEMP 98.9; O2SAT 100
[2022-09-27] MEDS ORDERED: TIZANIDINE HCL 4 MG TAB PO PRN
[2022-09-27] MEDS: METRONIDAZOLE 500MG/NS 100ML 100 ML IV SCH ×2 (00:54→09:16)
[2022-09-27] MEDS: METOCLOPRAMIDE HCL 10 MG/2ML VIAL IV SCH ×3 (00:54→11:46)
[2022-09-27 04:00] VITALS: BP 148/76; PULSE 62; RESP 18; TEMP 97; O2SAT 98
[2022-09-27] MEDS: ONDANSETRON HCL INJ 2MG/ML 2ML 2 MG/ML VIAL IV PRN (06:54)
[2022-09-27 06:55] LABS: BASOPHILS % 0.3 % (0.0-1.0); EOSINOPHILS # (AUTO) 0.3 (0.0-0.4); EOSINOPHILS % 2.9 % (0.0-6.0); HEMATOCRIT 30.8 % (34.2-44.1); LYMPHOCYTES # (AUTO) 2.3 (1.0-3.2); LYMPHOCYTES % 24.8 % (18.0-39.1); MEAN CORPUSCULAR HEMOGLOBIN 27.6 pg (28-32); MEAN CORPUSCULAR HGB CONC 32.5 g/dL (31-35); MEAN CORPUSCULAR VOLUME 85.1 fL (81-99); MONOCYTES # (AUTO) 0.7 (0.2-0.8); MONOCYTES % 7.9 % (4.4-11.3); NEUTROPHILS # (AUTO) 5.8 (2.1-6.9); NEUTROPHILS % 63.4 % (38.7-80.0); PLATELET COUNT 258 x10e3/uL (140-360); RED BLOOD COUNT 3.62 x10e6/uL (3.6-5.1); RED CELL DISTRIBUTION WIDTH 14.5 % (11.7-14.4)
[2022-09-27] MEDS: Morphine 2mg Syringe 2 MG/ML SYR IV PRN ×2 (06:55→13:52)
[2022-09-27 07:13] LABS: ANION GAP 10.8 mmol/L (8-16); CALCIUM 8.8 mg/dL (8.4-10.2); CREATININE, SERUM 0.71 mg/dL (0.57-1.11); POTASSIUM 3.8 mmol/L (3.5-5.1)
[2022-09-27 08:00] VITALS: BP 153/79; PULSE 55; RESP 18; TEMP 98.4; O2SAT 99
[2022-09-27 08:27] VITALS: BP 153/79; PULSE 55; RESP 16; TEMP 98.4; O2SAT 99
[2022-09-27] MEDS: FAMOTIDINE 20 MG/2 ML VIAL IV SCH (09:16)
[2022-09-27] MEDS: DICYCLOMINE HCL 20 MG TAB PO SCH ×2 (09:16→13:56)
[2022-09-27] MEDS: SUCRALFATE 1 GM TAB PO SCH (09:16)
[2022-09-27] MEDS: LISINOPRIL 20 MG TAB PO SCH (09:17)
[2022-09-27] MEDS: ALPRAZOLAM 1 MG TAB PO PRN (09:26)
[2022-09-27] MEDS ORDERED: SUCRALFATE 1 GM/10 ML SUSP PO SCH (11:30)
[2022-09-27 13:15] VITALS: BP 165/91; PULSE 57; RESP 18; TEMP 98.5; O2SAT 100
== END 2022-09-27 16:01 | disposition home or self-care (01) | DRG 392 ==
LOC: ER 19:33 → ERHOLD 22:49 → MED/SURG2 09-22 08:26 → OBSVTOIN 09-23 09:38
PROVIDERS: ADMIT Internal Medicine; ATTEND Internal Medicine
DX: K57.32 Diverticulitis of large intestine without perforation or abscess without bleeding (principal); K31.84 Gastroparesis; K21.9 Gastro-esophageal reflux disease without esophagitis; G47.00 Insomnia, unspecified; I10 Essential (primary) hypertension; F41.9 Anxiety disorder, unspecified; F32.A Depression, unspecified; E87.6 Hypokalemia; R19.7 Diarrhea, unspecified; F17.200 Nicotine dependence, unspecified, uncomplicated; Z79.899 Other long term (current) drug therapy; Z20.822 Contact with and (suspected) exposure to COVID-19
CPT/HCPCS: 0223U; 36415; 74174; 74177; 78264; 80048; 80053; 81001; 83630; 83690; 83735; 83993; 84484; 85025; 87045; 87086; 87177; 93005; 96361; 99283; A9541; G0378; J1200; J1630; J2270; J2405; J2543; J2765; J3480; J7030; J7040; J7050; Q9967